=== PATIENT | male | born 1935 | race Caucasian/White ===

== ENCOUNTER 2018-07-17 09:33 | Emergency (ER) | payer MEDICARE, OTHER ==
[2018-07-17] MEDS ORDERED: Sodium Chloride 0.9% 10 ML Syringe FLUSH PRN (09:35)
--- NOTE | 2018-07-17 10:05 | EDM.PDOC ---
ED HPI GENERAL MEDICAL PROBLEM - General Chief Complaint: Respiratory Problem Stated Complaint: sob, coughing up blood Time Seen by Provider: 07/17/18 09:35 Source of Information: Reports: Patient History Limitations: Reports: No Limitations - History of Present Illness INITIAL COMMENTS - FREE TEXT/NARRATIVE: Patient complains of left sided back pain, shortness of breath, and hemoptysis. He was in [place] [facility] [place] yesterday for a left lobe biopsy for lung growths that had appeared. 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 He is able to communicate by covering the stoma. He denies fever, chills, abdominal pain. 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 Chronic a-fib for which he takes coumadin. Was off the coumadin before the biopsy, bridged with Lovenox, and has now also resumed his coumadin post procedure. 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 Denies prior heart attack. Has had his appendix removed, but still has gall bladder. He denies any prior DVT. Onset: Today, Gradual Duration: Intermittent Location: Reports: Chest, Back Severity: Mild Associated Symptoms: Reports: Shortness of Breath Left Back Pain Score (Numeric/FACES): 5 - Related Data Allergies Allergy/AdvReac Type Severity Reaction Status Date / Time atorvastatin calcium Allergy Other Verified 07/17/18 10:07 [From Lipitor] Home Meds: Home Meds Hydrochlorothiazide 0.5 tab PO DAILY 02/24/15 [History] Lisinopril 20 mg PO DAILY 02/24/15 [History] Metoprolol Tartrate [Lopressor] 1 tab PO BID 02/24/15 [History] Simvastatin 1 tab PO BEDTIME 02/24/15 [History] Warfarin [Coumadin] 1 tab PO DAILY 02/24/15 [History] amLODIPine [Norvasc] 5 mg PO DAILY 02/24/15 [History] Arformoterol [Brovana] 1 puff INH BID 07/17/18 [History] Enoxaparin [Lovenox] 80 mg SUBCUT DAILY 07/17/18 [History] Furosemide 40 mg PO DAILY 07/17/18 [History] Ipratropium [Atrovent] 0.5 mg IH TID 07/17/18 [History] metOLazone [Metolazone] 2.5 mg PO DAILY 07/17/18 [History] Past Medical History Other Cardiovascular History: sick sinus syndrome, peripheral vascular disease Other Gastrointestinal History: elevated PSA Other Oncologic History: larynx cancer - Past Surgical History Other HEENT Surgeries/Procedures: laryngectomy Other GI Surgeries/Procedures: adenomatous colon polyp ED ROS GENERAL - Review of Systems Review Of Systems: See Below Constitutional: Reports: No Symptoms HEENT: Reports: No Symptoms Respiratory: Reports: Shortness of Breath, Hemoptysis Cardiovascular: Reports: No Symptoms Endocrine: Reports: No Symptoms GI/Abdominal: Reports: No Symptoms : Reports: No Symptoms Musculoskeletal: Reports: Back Pain Skin: Reports: No Symptoms Neurological: Reports: No Symptoms Psychiatric: Reports: No Symptoms Hematologic/Lymphatic: Reports: No Symptoms Immunologic: Reports: No Symptoms ED EXAM, GENERAL - Physical Exam Exam: See Below Exam Limited By: No Limitations General Appearance: Alert, WD/WN, No Apparent Distress Eye Exam: Bilateral Eye: EOMI, Normal Inspection, PERRL Ears: Normal TMs Nose: Normal Inspection, Normal Mucosa, No Blood Throat/Mouth: Normal Lips, Normal Teeth, Normal Gums, Other Head: Atraumatic, Normocephalic Neck: Other (stoma to neck from prior laryngectomy) Respiratory/Chest: No Respiratory Distress, Lungs Clear, Normal Breath Sounds ( to right side lobes only), No Accessory Muscle Use, Chest Non-Tender, Decreased Breath Sounds (left lung sounds present but decreased to all lobes) Cardiovascular: Irregularly Irregular (a-fib, paced) GI/Abdominal: Normal Bowel Sounds, Soft, Non-Tender, No Organomegaly, No Distention, No Abnormal Bruit, No Mass Back Exam: Normal Inspection, Full Range of Motion, Other (dressing to left upper back) Extremities: Normal Inspection, Normal Range of Motion, Non-Tender, Normal Capillary Refill, No Pedal Edema Neurological: Alert, Oriented, CN II-XII Intact, Normal Cognition, Normal Gait, Normal Reflexes, No Motor/Sensory Deficits Skin Exam: Wound/Incision (dressing to left upper back. Dressing is clean, dry , and intact) Lymphatic: No Adenopathy Course - Vital Signs Last Recorded V/S: Last Vital Signs Temp 37.7 C 07/17/18 10:29 Pulse 78 07/17/18 10:29 Resp 24 H 07/17/18 10:29 BP 126/59 L 07/17/18 10:29 Pulse Ox 92 L 07/17/18 10:29 - Orders/Labs/Meds Orders: Active Orders 24 hr Category Date Time Status EKG Documentation Completion [RC] STAT Care 07/17/18 09:35 Ordered Saline Lock Insert [OM.PC] Routine Oth 07/17/18 09:35 Ordered Labs: Laboratory Tests 07/17/18 07/17/18 07/17/18 Range/Units 09:50 09:50 09:50 WBC 12.6 H (4.0-10.0) x10^3/uL RBC 4.09 L (4.5-6.0) x10^6/uL Hgb 12.0 L (14.0-18.0) g/dL Hct 37.8 L (40.0-52.0) % MCV 92.4 (78.0-93.0) fL MCH 29.3 (26.0-32.0) pg MCHC 31.7 L (32.0-36.0) g/dL RDW Coeff of Leelee 13.8 (10.0-15.0) % Plt Count 245 (130-400) x10^3/uL Neut % (Auto) 77.5 (50.0-80.0) % Lymph % (Auto) 11.8 L (25.0-50.0) % [place] % (Auto) 10.6 (2.0-11.0) % Eos % (Auto) 0.0 (0.0-4.0) % Baso % (Auto) 0.1 L (0.2-1.2) % PT (9.6-11.4) SEC INR (2.0-3.5) D-Dimer, Quantitative 0.89 H (<=0.58) mg/LFEU Sodium 143 (136-145) mmol/L Potassium 4.2 (3.5-5.1) mmol/L Chloride 105 (98-107) mmol/L Carbon Dioxide 25 (21-32) mmol/L Anion Gap 17.2 (10-20) mmol/L BUN 34 H (7-18) mg/dL Creatinine 1.6 H (0.70-1.30) mg/dL Est Cr Clr Drug Dosing TNP Estimated GFR (MDRD) 41 Glucose 165 H (74-106) mg/dL Calcium 9.2 (8.5-10.1) mg/dL Corrected Calcium 9.36 (8.5-10.1) mg/dL Total Bilirubin 2.2 H (0.2-1.0) mg/dL AST 27 (15-37) U/L ALT 37 (16-63) U/L Alkaline Phosphatase 95 (46-116) U/L Creatine Kinase 137 (39-308) U/L Troponin I < 0.017 (<=0.056) ng/mL NT-Pro-B Natriuret Pep 2968 H (<=450) pg/mL Total Protein 7.9 (6.4-8.2) g/dL Albumin 3.8 (3.4-5.0) g/dL Globulin 4.1 Albumin/Globulin Ratio 0.93 Amylase 84 (25-115) U/L TSH, Ultra Sensitive 1.717 (0.358-3.74) uIU/mL 07/17/18 Range/Units 09:50 WBC (4.0-10.0) x10^3/uL RBC (4.5-6.0) x10^6/uL Hgb (14.0-18.0) g/dL Hct (40.0-52.0) % MCV (78.0-93.0) fL MCH (26.0-32.0) pg MCHC (32.0-36.0) g/dL RDW Coeff of Leelee (10.0-15.0) % Plt Count (130-400) x10^3/uL Neut % (Auto) (50.0-80.0) % Lymph % (Auto) (25.0-50.0) % [place] % (Auto) (2.0-11.0) % Eos % (Auto) (0.0-4.0) % Baso % (Auto) (0.2-1.2) % PT 11.6 H (9.6-11.4) SEC INR 1.1 L (2.0-3.5) D-Dimer, Quantitative (<=0.58) mg/LFEU Sodium (136-145) mmol/L Potassium (3.5-5.1) mmol/L Chloride (98-107) mmol/L Carbon Dioxide (21-32) mmol/L Anion Gap (10-20) mmol/L BUN (7-18) mg/dL Creatinine (0.70-1.30) mg/dL Est Cr Clr Drug Dosing Estimated GFR (MDRD) Glucose (74-106) mg/dL Calcium (8.5-10.1) mg/dL Corrected Calcium (8.5-10.1) mg/dL Total Bilirubin (0.2-1.0) mg/dL AST (15-37) U/L ALT (16-63) U/L Alkaline Phosphatase (46-116) U/L Creatine Kinase (39-308) U/L Troponin I (<=0.056) ng/mL NT-Pro-B Natriuret Pep (<=450) pg/mL Total Protein (6.4-8.2) g/dL Albumin (3.4-5.0) g/dL Globulin Albumin/Globulin Ratio Amylase (25-115) U/L TSH, Ultra Sensitive (0.358-3.74) uIU/mL Meds: Medications Discontinued Medications Generic Name Dose Route Start Last Admin Trade Name Freq PRN Reason Stop Dose Admin Sodium Chloride 10 ml 07/17/18 09:35 Saline Flush FLUSH ASDIRECTED PRN Keep Vein Open - Radiology Interpretation Free Text/Narrative:: Chest x-ray shows left sided pneumothorax. I did discuss findings with Dr. Solis from [facility]. I did tell him that I would not be putting in a chest tube due to stable findings hemodynamically. Also complicating the situation is his Lovenox and Warfarin medications. I felt any risk for bleeding with CT insertion would be minimized having more available staff and specialists. Departure - Departure Time of Disposition: 10:54 Disposition: DC/Tfer to Acute Hospital 02 Condition: Fair Clinical Impression: Pneumothorax, left - Discharge Information *PRESCRIPTION DRUG MONITORING PROGRAM REVIEWED*: Not Applicable *COPY OF PRESCRIPTION DRUG MONITORING REPORT IN PATIENT TAMRA: Not Applicable Referrals: Peter Bueno MD [Primary Care Provider] - Forms: ED Department Discharge, Interfacility Transfer EMTALA ED Communication - ED Communication Date/Time Date: 07/17/18 Time Called: 10:31 - Discussed Case With (1) Discussed Case With (1): Other (ER provider Dr. Solis given report) - My Orders Last 24 Hours: My Active Orders 07/17/18 09:35 EKG Documentation Completion [RC] STAT Saline Lock Insert [OM.PC] Routine - Assessment/Plan Last 24 Hours: My Active Orders 07/17/18 09:35 EKG Documentation Completion [RC] STAT Saline Lock Insert [OM.PC] Routine
--- NOTE | 2018-07-17 10:22 | CR ---
[id number] RAD/RAD Chest PA or AP 1V EXAM: SINGLE VIEW CHEST. INDICATION: SHORTNESS OF BREATH COMPARISON: CORRELATION IS MADE WITH THE CAT SCAN OF MAY 21, 2018. FINDINGS: There is a large left-sided tension pneumothorax. Report was called at the time of the dictation. The CAT scan of May 21, 2018 did demonstrate a left upper lobe cavitary lesion. IMPRESSION: LEFT SIDE LARGE TENSION PNEUMOTHORAX. Pedro Farley MD 07/17/18 [id number] Thank you for allowing us to participate in the care of your patient.
[2018-07-17 10:27] LABS: CHLORIDE,CL 105 mmol/L (98-107); SODIUM,NA 143 mmol/L (136-145)
[2018-07-17 10:29] LABS: ANION GAP 17.2 mmol/L (10-20)
[2018-07-17 10:30] VITALS: BP 126/59
== END 2018-07-17 10:54 | disposition short-term general hospital (02) ==
LOC: VM.ED 09:33
DX: J93.9 Pneumothorax, unspecified (principal); Z88.8 Allergy status to other drugs, medicaments and biological substances; Z79.899 Other long term (current) drug therapy; Z79.01 Long term (current) use of anticoagulants
CPT/HCPCS: 36415; 71045; 80053; 82150; 82550; 83880; 84443; 84484; 85025; 85379; 85610; 93005; 99284-GF; 99285-25

== ENCOUNTER 2018-09-30 16:41 | Emergency (ER) | payer MEDICARE, OTHER ==
[2018-09-30] MEDS ORDERED: Sodium Chloride 0.9% 1,000 ML IV ONE (16:44)
[2018-09-30] MEDS ORDERED: Sodium Chloride 0.9% 10 ML Syringe FLUSH PRN (16:44)
[2018-09-30] MEDS ORDERED: cefTRIAXone 1 GM Vial IVPUSH ONE (16:44)
--- NOTE | 2018-09-30 16:59 | EDM.PDOC ---
ED HPI GENERAL MEDICAL PROBLEM - General Chief Complaint: General Stated Complaint: fever, weakness Time Seen by Provider: 09/30/18 16:41 Source of Information: Reports: Patient History Limitations: Reports: No Limitations - History of Present Illness INITIAL COMMENTS - FREE TEXT/NARRATIVE: Patient comes into the emergency department with complaint of fever and weakness. Patient is an oncology patient with active lung cancer. He is undergoing radiation and chemotherapy 5 days a week at the [facility]. Has 2 weeks left prior to completion. He contacted his oncologist earlier today when he spiked a fever of 101.3 and 101.5 and had increased weakness today. He also is complaining of SOB, productive cough/blood however, he states this has been going on now for a few weeks with no major changes today and his oncologist is aware. Patient denies any chest pain, dizziness, lightheadedness, blurred vision, swelling of the lower extremities, nausea or vomiting or diarrhea. He also denies being around anyone with illnesses recently. Onset: Sudden Improves with: Reports: None Worsens with: Reports: None Associated Symptoms: Reports: Cough, cough w sputum, Fever/Chills, Malaise, Weakness - Related Data Allergies Allergy/AdvReac Type Severity Reaction Status Date / Time atorvastatin calcium Allergy Other Verified 09/30/18 16:51 [From Lipitor] Home Meds: Home Meds Metoprolol Tartrate [Lopressor] 1 tab PO BID 02/24/15 [History] Simvastatin 1 tab PO BEDTIME 02/24/15 [History] Warfarin [Coumadin] 1 tab PO DAILY 02/24/15 [History] amLODIPine [Norvasc] 5 mg PO DAILY 02/24/15 [History] Arformoterol [Brovana] 1 puff INH BID 07/17/18 [History] Furosemide 40 mg PO DAILY 07/17/18 [History] Ipratropium [Atrovent] 0.5 mg IH TID 07/17/18 [History] metOLazone [Metolazone] 2.5 mg PO DAILY 07/17/18 [History] Past Medical History Other Cardiovascular History: sick sinus syndrome, peripheral vascular disease Other Gastrointestinal History: elevated PSA Other Oncologic History: larynx cancer - Past Surgical History Other HEENT Surgeries/Procedures: laryngectomy Other GI Surgeries/Procedures: adenomatous colon polyp ED ROS GENERAL - Review of Systems Review Of Systems: ROS reveals no pertinent complaints other than HPI. Constitutional: Reports: Fever, Chills, Malaise, Weakness HEENT: Reports: No Symptoms Respiratory: Reports: No Symptoms Cardiovascular: Reports: No Symptoms GI/Abdominal: Reports: No Symptoms : Reports: No Symptoms Musculoskeletal: Reports: No Symptoms Skin: Reports: No Symptoms Neurological: Reports: No Symptoms ED EXAM, GENERAL - Physical Exam Exam: See Below Exam Limited By: No Limitations General Appearance: Alert, WD/WN, No Apparent Distress Head: Atraumatic, Normocephalic Neck: Normal Inspection, Supple, Non-Tender Respiratory/Chest: No Respiratory Distress, Lungs Clear, No Accessory Muscle Use Neurological: Alert, Oriented Skin Exam: Warm, Dry, Intact, Normal Color Course - Vital Signs Last Recorded V/S: Last Vital Signs Temp 38.2 C H 09/30/18 17:12 Pulse 104 H 09/30/18 16:50 Resp 16 09/30/18 16:50 BP 152/74 H 09/30/18 16:50 Pulse Ox 97 09/30/18 16:50 - Orders/Labs/Meds Orders: Active Orders 24 hr Category Date Time Status EKG Documentation Completion [RC] STAT Care 09/30/18 16:43 Ordered CULTURE BLOOD [BC] Stat Lab 09/30/18 16:44 Ordered CULTURE BLOOD [BC] Stat Lab 09/30/18 16:44 Ordered Sodium Chloride 0.9% [Saline Flush] Med 09/30/18 16:44 Ordered 10 ml FLUSH ASDIRECTED PRN Blood Culture x2 Reflex Set [OM.PC] Stat Oth 09/30/18 16:43 Ordered Peripheral IV Insertion Adult [OM.PC] Stat Oth 09/30/18 16:43 Ordered Medication Orders Sodium Chloride (Saline Flush) 10 ml FLUSH ASDIRECTED PRN PRN Reason: Keep Vein Open Last Admin: 09/30/18 17:08 Dose: 10 ml Labs: Laboratory Tests 09/30/18 09/30/18 09/30/18 Range/Units 16:56 16:56 16:56 WBC 3.3 L (4.0-10.0) x10^3/uL RBC 3.34 L (4.5-6.0) x10^6/uL Hgb 10.1 L D (14.0-18.0) g/dL Hct 29.4 L (40.0-52.0) % MCV 88.0 D (78.0-93.0) fL MCH 30.2 (26.0-32.0) pg MCHC 34.4 (32.0-36.0) g/dL RDW Coeff of Leelee 13.0 (10.0-15.0) % Plt Count 181 (130-400) x10^3/uL Neut % (Auto) 75.7 (50.0-80.0) % Lymph % (Auto) 18.6 L (25.0-50.0) % [place] % (Auto) 5.4 (2.0-11.0) % Eos % (Auto) 0.0 (0.0-4.0) % Baso % (Auto) 0.3 (0.2-1.2) % Sodium 138 (136-145) mmol/L Potassium 3.6 (3.5-5.1) mmol/L Chloride 99 (98-107) mmol/L Carbon Dioxide 29 (21-32) mmol/L Anion Gap 13.6 (10-20) mmol/L BUN 20 H (7-18) mg/dL Creatinine 1.0 (0.70-1.30) mg/dL Est Cr Clr Drug Dosing TNP Estimated GFR (MDRD) > 60 Glucose 123 H (74-106) mg/dL Lactic Acid 1.8 (0.4-2.0) mmol/L Calcium 8.2 L (8.5-10.1) mg/dL Corrected Calcium 8.84 (8.5-10.1) mg/dL Total Bilirubin 1.4 H (0.2-1.0) mg/dL AST 23 (15-37) U/L ALT 39 (16-63) U/L Alkaline Phosphatase 85 (46-116) U/L Total Protein 7.1 (6.4-8.2) g/dL Albumin 3.2 L (3.4-5.0) g/dL Globulin 3.9 Albumin/Globulin Ratio 0.82 Meds: Medications Generic Name Dose Route Start Last Admin Trade Name Freq PRN Reason Stop Dose Admin Sodium Chloride 10 ml 09/30/18 16:44 09/30/18 17:08 Saline Flush FLUSH 10 ml ASDIRECTED PRN Administration Keep Vein Open Discontinued Medications Generic Name Dose Route Start Last Admin Trade Name Fred PRN Reason Stop Dose Admin Acetaminophen 650 mg 09/30/18 17:04 09/30/18 17:12 Tylenol PO 09/30/18 17:05 650 mg NOW ONE Administration Ceftriaxone Sodium 1 gm 09/30/18 16:44 09/30/18 17:06 Rocephin IVPUSH 09/30/18 16:45 1 gm ONETIME ONE Administration Sodium Chloride 1,000 mls @ 1,000 mls/hr 09/30/18 16:44 09/30/18 17:13 Normal Saline IV 09/30/18 17:43 1,000 mls/hr ONETIME ONE Administration - Re-Assessments/Exams Free Text/Narrative Re-Assessment/Exam: 09/30/18 17:37 he is feeling better. VSS. Would like to go home and follow up at his oncology appointment tomorrow. Departure - Departure Time of Disposition: 18:00 Disposition: Home, Self-Care 01 Condition: Good Clinical Impression: Weakness Fever Qualifiers: Fever type: unspecified Qualified Code(s): R50.9 - Fever, unspecified - Discharge Information *PRESCRIPTION DRUG MONITORING PROGRAM REVIEWED*: Not Applicable *COPY OF PRESCRIPTION DRUG MONITORING REPORT IN PATIENT TAMRA: Not Applicable Instructions: Fever, Adult, Weakness, [id number] Referrals: Pteer Bueno MD [Primary Care Provider] - Forms: ED Department Discharge Additional Instructions: 1. rest 2. follow up with oncology in the am as you are already scheduled 3. Can take Tylenol every 4 hours as needed for pain or fever 4. increase your water intake 5. Activity and diet as tolerated 6. You were given Rocephin in the ER for the fever and your labs/xray did not show any acute findings. 7. Please call with any questions or concerns. - Problem List Review Problem List Initiated/Reviewed/Updated: Yes - My Orders Last 24 Hours: My Active Orders 09/30/18 16:43 EKG Documentation Completion [RC] STAT Blood Culture x2 Reflex Set [OM.PC] Stat Peripheral IV Insertion Adult [OM.PC] Stat 09/30/18 16:44 CULTURE BLOOD [BC] Stat CULTURE BLOOD [BC] Stat Sodium Chloride 0.9% [Saline Flush] 10 ml FLUSH ASDIRECTED PRN - Assessment/Plan Last 24 Hours: My Active Orders 09/30/18 16:43 EKG Documentation Completion [RC] STAT Blood Culture x2 Reflex Set [OM.PC] Stat Peripheral IV Insertion Adult [OM.PC] Stat 09/30/18 16:44 CULTURE BLOOD [BC] Stat CULTURE BLOOD [BC] Stat Sodium Chloride 0.9% [Saline Flush] 10 ml FLUSH ASDIRECTED PRN Assessment:: 1. Fever 2. Weakness 3. Active chemo/radiation oncology patient Plan: 1. Labs completed in the ER. Results reviewed with the patient 2. EKG completed in the ER results. Patient. 3. Blood cultures completed in the emergency department 4. IV access with IV fluids for rehydration 5. Rocephin 1gm IV given after blood cultures obtained 6. Tylenol ordered for comfort and fever reduction 7. Chest x-ray completed. Results reviewed with the patient 8. Patient would like to go home. He is scheduled for radiation and chemo tomorrow and an appointment with oncology in [place]. Pt is feeling better and would like to go home. 9. Education regarding activity, diet, OTC medication, and follow up care provided. 10. All questions and concerns were addressed prior to discharge.
[2018-09-30] MEDS ORDERED: Acetaminophen 325 MG Tab PO ONE (17:04)
--- NOTE | 2018-09-30 17:27 | CR ---
[id number] RAD/RAD Chest PA And Lateral EXAM: RAD Chest PA And Lateral CLINICAL DATA: LUNG CANCER. HEMOPTYSIS COMPARISON: CORRELATION IS MADE WITH THE EXAM OF JULY 17, 2018. FINDINGS: There is no infiltrate or effusion. There is no pneumothorax. The cardiomediastinal contour is stable. The pacemaker is seen. The lungs are emphysematous. IMPRESSION: NO OBVIOUS ABNORMALITY. CONSIDER CONTRAST CT CHEST IF HEMOPTYSIS PERSISTS. Pedro Farley MD 09/30/18 [id number] Thank you for allowing us to participate in the care of your patient.
[2018-09-30 17:29] LABS: CHLORIDE,CL 99 mmol/L (98-107); SODIUM,NA 138 mmol/L (136-145)
[2018-09-30 17:31] LABS: ANION GAP 13.6 mmol/L (10-20)
[2018-09-30 17:43] VITALS: BP 152/74
== END 2018-09-30 18:16 | disposition home or self-care (01) ==
LOC: VM.ED 16:41
DX: R53.1 Weakness (principal); R50.9 Fever, unspecified; C34.90 Malignant neoplasm of unspecified part of unspecified bronchus or lung; Z79.899 Other long term (current) drug therapy; Z79.01 Long term (current) use of anticoagulants; Z88.8 Allergy status to other drugs, medicaments and biological substances
CPT/HCPCS: 36415; 71046; 80053; 83605; 85025; 87040; 93005; 96361; 96374; 99284; A9270; J0696; J7030

== ENCOUNTER 2019-01-05 08:42 | Inpatient (IN) | payer MEDICARE, OTHER ==
[2019-01-05 09:37] LABS: CHLORIDE,CL 103 mmol/L (98-107); SODIUM,NA 141 mmol/L (136-145)
[2019-01-05 09:41] LABS: ANION GAP 11.6 mmol/L (10-20)
--- NOTE | 2019-01-05 09:43 | CR ---
[id number] RAD/RAD Chest PA And Lateral EXAM: FRONTAL AND LATERAL CHEST INDICATION: Syncope and bradycardia. COMPARISON: September 30, 2018. DISCUSSION: Hyperinflation is consistent with chronic obstructive pulmonary disease. Mild left upper lobe infiltrates and/or atelectasis. Unless clinically indicated sooner, a 6 week follow-up exam is suggested to ensure resolution and to help further exclude other underlying pathology.. Stable cardiomegaly without evidence of congestive heart failure. Left subclavian approach pacemaker lead tip within the right ventricle. IMPRESSION: 1. Mild left upper lobe infiltrates and/or atelectasis. 2. Stable cardiomegaly without evidence of congestive heart failure. Juanito Rodriguez MD 01/05/19 0943 Thank you for allowing us to participate in the care of your patient.
[2019-01-05] MEDS ORDERED: cefTRIAXone 2 GM Vial IVPUSH ONE (09:46)
[2019-01-05] MEDS ORDERED: Azithromycin 500 MG in Sodium Chloride 0.9% 250 ML IV ONE (09:46)
[2019-01-05] MEDS: Sodium Chloride 0.9% 10 ML Syringe FLUSH PRN ×2 (09:59→19:26)
--- NOTE | 2019-01-05 10:11 | EDM.PDOC ---
ED HPI GENERAL MEDICAL PROBLEM - General Chief Complaint: Fever Time Seen by Provider: 01/05/19 08:42 Source of Information: Reports: Patient History Limitations: Reports: No Limitations - History of Present Illness INITIAL COMMENTS - FREE TEXT/NARRATIVE: Pt. presents to ER with complaints of fever. He is currently on durvalumab for stage IIIA small cell lung carcinoma. Pt. states that he developed the fever last night and called the garbage collection supervisor oncologist at [facility] today who advised he come to ER. Pt. states that he has had a cough for several days. He states that it is productive of yellow sputum. Denies any chest pain or shortness of breath. Pt. states that he had a 101.8 fever at home. Denies any recent hospitalizations. No dysuria. No skin rashes or cellulitis. Pt. is otherwise feeling well. He is ambulatory and drove himself to the hospital. Pt. was last hospitalized in June when he had a pneumothorax. Onset: Today Onset Date: 01/04/19 Right Lower Leg Pain Score (Numeric/FACES): 6 - Related Data Allergies Allergy/AdvReac Type Severity Reaction Status Date / Time atorvastatin calcium Allergy Other Verified 09/30/18 16:51 [From Lipitor] Home Meds: Home Meds Metoprolol Tartrate [Lopressor] 25 mg PO BID 02/24/15 [History] Simvastatin 1 tab PO BEDTIME 02/24/15 [History] Warfarin [Coumadin] 1 tab PO DAILY 02/24/15 [History] amLODIPine [Norvasc] 5 mg PO DAILY 02/24/15 [History] Arformoterol [Brovana] 1 puff INH BID 07/17/18 [History] Furosemide 20 mg PO DAILY 07/17/18 [History] Ipratropium [Atrovent] 0.5 mg IH TID 07/17/18 [History] metOLazone [Metolazone] 2.5 mg PO ASDIRECTED 07/17/18 [History] Past Medical History Other Cardiovascular History: sick sinus syndrome, peripheral vascular disease Other Gastrointestinal History: elevated PSA Other Oncologic History: larynx cancer - Past Surgical History Other HEENT Surgeries/Procedures: laryngectomy Other GI Surgeries/Procedures: adenomatous colon polyp ED ROS GENERAL - Review of Systems Review Of Systems: See Below Constitutional: Reports: Fever, Chills HEENT: Reports: No Symptoms Respiratory: Reports: Cough Cardiovascular: Reports: No Symptoms Endocrine: Reports: No Symptoms GI/Abdominal: Reports: No Symptoms : Reports: No Symptoms Musculoskeletal: Reports: No Symptoms Skin: Reports: No Symptoms Neurological: Reports: No Symptoms Psychiatric: Reports: No Symptoms Hematologic/Lymphatic: Reports: No Symptoms Immunologic: Reports: Other (on immunosuppressant) ED EXAM, GENERAL - Physical Exam Exam: See Below Exam Limited By: No Limitations General Appearance: Alert, WD/WN, No Apparent Distress Eye Exam: Bilateral Eye: EOMI, PERRL Throat/Mouth: Normal Inspection, Normal Lips, Normal Teeth, Normal Gums, Normal Oropharynx, Normal Voice, No Airway Compromise Neck: Normal Inspection, Supple, Non-Tender, Full Range of Motion Respiratory/Chest: No Respiratory Distress, No Accessory Muscle Use, Crackles, Rhonchi (crackles and rhonchi on L. Pleural rub noted.), Pleural Rub Cardiovascular: Normal Peripheral Pulses, No Edema, No Gallop, No JVD, No Murmur , No Rub, Irregularly Irregular GI/Abdominal: Normal Bowel Sounds, Soft, Non-Tender, No Organomegaly, No Distention, No Abnormal Bruit, No Mass (Male) Exam: Deferred Rectal (Males) Exam: Deferred Back Exam: Normal Inspection, Full Range of Motion Extremities: Normal Inspection, Normal Range of Motion, Non-Tender, No Pedal Edema, Normal Capillary Refill Neurological: Alert, Oriented, CN II-XII Intact, Normal Cognition, Normal Gait, Normal Reflexes, No Motor/Sensory Deficits Psychiatric: Normal Affect, Normal Mood Skin Exam: Warm, Dry, Intact, Normal Color, No Rash Lymphatic: No Adenopathy Course - Vital Signs Last Recorded V/S: Last Vital Signs Temp 37.4 C 01/05/19 08:45 Pulse 78 01/05/19 08:45 Resp 16 01/05/19 08:45 BP 123/60 01/05/19 08:45 Pulse Ox 97 01/05/19 08:45 - Orders/Labs/Meds Orders: Active Orders 24 hr Category Date Time Status CULTURE BLOOD [BC] Stat Lab 01/05/19 09:00 Received CULTURE BLOOD [BC] Stat Lab 01/05/19 09:06 Results Azithromycin [Zithromax] 500 mg Med 01/05/19 09:46 Active Sodium Chloride 0.9% [Normal Saline (AdvBag)] 250 ml IV STAT Sodium Chloride 0.9% [Saline Flush] Med 01/05/19 08:49 Active 10 ml FLUSH ASDIRECTED PRN Blood Culture x2 Reflex Set [OM.PC] Stat Oth 01/05/19 08:52 Ordered Peripheral IV Insertion Adult [OM.PC] Routine Oth 01/05/19 08:50 Ordered Medication Orders Azithromycin 500 mg/ Sodium (Chloride) 250 mls @ 250 mls/hr IV STAT ONE Stop: 01/05/19 10:45 Last Admin: 01/05/19 10:01 Dose: 250 mls/hr Sodium Chloride (Saline Flush) 10 ml FLUSH ASDIRECTED PRN PRN Reason: Keep Vein Open Last Admin: 01/05/19 09:59 Dose: 10 ml Labs: Laboratory Tests 01/05/19 01/05/19 01/05/19 Range/Units 09:00 09:00 09:00 WBC 10.4 H (4.0-10.0) x10^3/uL RBC 3.48 L (4.5-6.0) x10^6/uL Hgb 10.7 L (14.0-18.0) g/dL Hct 32.9 L (40.0-52.0) % MCV 94.5 H D (78.0-93.0) fL MCH 30.7 (26.0-32.0) pg MCHC 32.5 (32.0-36.0) g/dL RDW Coeff of Leelee 13.0 (10.0-15.0) % Plt Count 194 (130-400) x10^3/uL Neut % (Auto) 80.2 H (50.0-80.0) % Lymph % (Auto) 6.1 L (25.0-50.0) % Dorado % (Auto) 13.3 H (2.0-11.0) % Eos % (Auto) 0.3 (0.0-4.0) % Baso % (Auto) 0.1 L (0.2-1.2) % PT 32.0 H (10.0-12.8) SEC INR 2.8 (2.0-3.5) Sodium 141 (136-145) mmol/L Potassium 3.6 (3.5-5.1) mmol/L Chloride 103 (98-107) mmol/L Carbon Dioxide 30 (21-32) mmol/L Anion Gap 11.6 (10-20) mmol/L BUN 23 H (7-18) mg/dL Creatinine 1.1 (0.70-1.30) mg/dL Est Cr Clr Drug Dosing TNP Estimated GFR (MDRD) > 60 Glucose 118 H (74-106) mg/dL Lactic Acid (0.4-2.0) mmol/L Calcium 8.7 (8.5-10.1) mg/dL Corrected Calcium 9.66 (8.5-10.1) mg/dL Phosphorus 3.2 (2.6-4.7) mg/dL Magnesium 1.7 L (1.8-2.4) mg/dL Total Bilirubin 1.8 H (0.2-1.0) mg/dL AST 44 H (15-37) U/L ALT 39 (16-63) U/L Alkaline Phosphatase 134 H (46-116) U/L C-Reactive Protein 4.3 H (<=0.9) mg/dL Total Protein 6.6 (6.4-8.2) g/dL Albumin 2.8 L (3.4-5.0) g/dL Globulin 3.8 Albumin/Globulin Ratio 0.74 01/05/19 Range/Units 09:00 WBC (4.0-10.0) x10^3/uL RBC (4.5-6.0) x10^6/uL Hgb (14.0-18.0) g/dL Hct (40.0-52.0) % MCV (78.0-93.0) fL MCH (26.0-32.0) pg MCHC (32.0-36.0) g/dL RDW Coeff of Leelee (10.0-15.0) % Plt Count (130-400) x10^3/uL Neut % (Auto) (50.0-80.0) % Lymph % (Auto) (25.0-50.0) % Dorado % (Auto) (2.0-11.0) % Eos % (Auto) (0.0-4.0) % Baso % (Auto) (0.2-1.2) % PT (10.0-12.8) SEC INR (2.0-3.5) Sodium (136-145) mmol/L Potassium (3.5-5.1) mmol/L Chloride (98-107) mmol/L Carbon Dioxide (21-32) mmol/L Anion Gap (10-20) mmol/L BUN (7-18) mg/dL Creatinine (0.70-1.30) mg/dL Est Cr Clr Drug Dosing Estimated GFR (MDRD) Glucose (74-106) mg/dL Lactic Acid 1.3 (0.4-2.0) mmol/L Calcium (8.5-10.1) mg/dL Corrected Calcium (8.5-10.1) mg/dL Phosphorus (2.6-4.7) mg/dL Magnesium (1.8-2.4) mg/dL Total Bilirubin (0.2-1.0) mg/dL AST (15-37) U/L ALT (16-63) U/L Alkaline Phosphatase (46-116) U/L C-Reactive Protein (<=0.9) mg/dL Total Protein (6.4-8.2) g/dL Albumin (3.4-5.0) g/dL Globulin Albumin/Globulin Ratio Meds: Medications Generic Name Dose Route Start Last Admin Trade Name Freq PRN Reason Stop Dose Admin Azithromycin 500 mg/ Sodium 250 mls @ 250 mls/hr 01/05/19 09:46 01/05/19 10: 01 Chloride IV 01/05/19 10:45 250 mls/hr STAT ONE Administration Sodium Chloride 10 ml 01/05/19 08:49 01/05/19 09:59 Saline Flush FLUSH 10 ml ASDIRECTED PRN Administration Keep Vein Open Discontinued Medications Generic Name Dose Route Start Last Admin Trade Name Freq PRN Reason Stop Dose Admin Ceftriaxone Sodium 2 gm 01/05/19 09:46 01/05/19 10:00 Rocephin IVPUSH 01/05/19 09:47 2 gm STAT ONE Administration - Radiology Interpretation Free Text/Narrative:: L upper lobe infiltrate noted on chest x-ray. - Re-Assessments/Exams Free Text/Narrative Re-Assessment/Exam: 01/05/19 10:29 Pt. was given Rocephin 2mg IV and azithromycin 500mg IV. Departure - Departure Time of Disposition: 10:28 Disposition: DC/Tfer to [facility] 02 Clinical Impression: Pneumonia - Discharge Information - Problem List Review Problem List Initiated/Reviewed/Updated: Yes - My Orders Last 24 Hours: My Active Orders 01/05/19 08:49 Sodium Chloride 0.9% [Saline Flush] 10 ml FLUSH ASDIRECTED PRN 01/05/19 08:50 Peripheral IV Insertion Adult [OM.PC] Routine 01/05/19 08:52 Blood Culture x2 Reflex Set [OM.PC] Stat 01/05/19 09:00 CULTURE BLOOD [BC] Stat 01/05/19 09:06 CULTURE BLOOD [BC] Stat 01/05/19 09:46 Azithromycin [Zithromax] 500 mg Sodium Chloride 0.9% [Normal Saline (AdvBag)] 250 ml IV STAT - Assessment/Plan Last 24 Hours: My Active Orders 01/05/19 08:49 Sodium Chloride 0.9% [Saline Flush] 10 ml FLUSH ASDIRECTED PRN 01/05/19 08:50 Peripheral IV Insertion Adult [OM.PC] Routine 01/05/19 08:52 Blood Culture x2 Reflex Set [OM.PC] Stat 01/05/19 09:00 CULTURE BLOOD [BC] Stat 01/05/19 09:06 CULTURE BLOOD [BC] Stat 01/05/19 09:46 Azithromycin [Zithromax] 500 mg Sodium Chloride 0.9% [Normal Saline (AdvBag)] 250 ml IV STAT Plan: Pt. will be admitted acutely. He will be admitted by Dr. Perkins. He is a code 2, no intubation but wishes for ventilation if needed. I spoke with Dr. Mendes who advised obtaining a CTA to rule out immunosuppressant induced pneumonitis. This will be done from the floor, as the ER is full and there are no beds available.
[2019-01-05] MEDS ORDERED: Iopamidol 612 MG/ML 100 ML Bottle IVPUSH ONE (10:43)
[2019-01-05] MEDS ORDERED: Albuterol/Ipratropium 3.0-0.5 MG/3 ML Neb Soln NEB PRN (11:21)
[2019-01-05] MEDS ORDERED: Prochlorperazine 5 MG Tab PO PRN (12:00)
[2019-01-05] MEDS: Ipratropium 0.02% 0.5 MG/2.5 ML Neb Soln INH SCH ×2 (12:07→19:25)
[2019-01-05] MEDS: Magnesium Oxide 400 MG Tab PO SCH (12:14)
--- NOTE | 2019-01-05 12:16 | CT ---
[id number] CT/CTA Chest EXAM: CT ANGIOGRAM CHEST INDICATION: Pneumonia and fever. COMPARISON: May 21, 2017. DISCUSSION: No large or central pulmonary embolus is identified, but respiratory motion limits evaluation for small and peripheral emboli. Mild to moderate consolidation in the apex of the left upper lobe. Mild bilateral groundglass opacities. These findings are compatible with pneumonia. These changes are not the classic nodule with halo or reverse halo typically described in angioinvasive aspergillus. Stable mild to moderate emphysema including a bulla in the apex of the left upper lobe. Irregular nodularity along the margins of the liver has not appreciably changed. Small left pleural effusion. Cardiomegaly with reflux of contrast into the hepatic veins consistent with cardiac insufficiency. Pacemaker leads are seen in the right heart. Small ascites in the upper abdomen. Imaged upper abdomen and osseous structures are otherwise unremarkable. IMPRESSION: 1. Left upper lobe infiltrates consistent with infection. 2. Negative for pulmonary embolism. Juanito Rodriguez MD 01/05/19 2198 Thank you for allowing us to participate in the care of your patient.
[2019-01-05] MEDS ORDERED: methylPREDNISolone Sodium Succinate 125 MG/2 ML SDV IVPUSH ONE (14:01)
[2019-01-05] MEDS ORDERED: cefTRIAXone 2 GM, Lidocaine 1% 4.2 ML IM ONE ×2 (14:02)
[2019-01-05] MEDS ORDERED: Acetaminophen 500 MG Tab PO PRN (16:11)
--- NOTE | 2019-01-05 17:14 | HP ---
CHIEF COMPLAINT: Fever. HISTORY OF PRESENT ILLNESS: This is an 83-year-old male with known history of non small cell lung cancer on immunotherapy with durvalumab who presents to the emergency room with a fever he developed last night. He had not been feeling well for a few days. He was not able to sleep much last night. He has had some cough, but he denied any shortness of breath. No chest pain. His temp was 101.8. He does have some rash to the right seals which is chronic, but it has been more painful recently. He also has a history of laryngeal cancer and more recently the lung cancer, has been on some treatments it sounds like since June, but was recently switched over to the immunotherapy, has had at least a couple of doses, they are like every 2 weeks, next due on 01/09/2019. He had only a 99.4 temp in the ER, mildly elevated white count 10.4. He was not requiring any oxygen. He is already on Coumadin for AFib. He received IV Rocephin and Zithromax in the ER. ALLERGIES: Lipitor caused elevated liver enzymes. MEDICATIONS: His medication list is reviewed. He takes ipratropium inhalations 3 times a day, Lopressor 25 twice daily, Senokot as needed, lactulose as needed, Zofran as needed, Compazine as needed, Lasix 20 mg daily, Zaroxolyn 2.5 every other day, Brovana 15 mcg twice a day, Norvasc 5 mg daily, Zocor 20 mg at bedtime, warfarin dosing schedule is 5 mg on Monday, Monday, Monday, , and Monday and 2.5 on Mondays and Fridays. PAST MEDICAL HISTORY: Otherwise includes quite complex history of appendicitis with appendectomy in 2017. He has some ascites which is reportedly due to some CHF. He has had pleural effusions and thoracentesis and thoracotomies in the past. He has chronic diastolic heart failure, his EF is 50%. He has a pacemaker in place. He has a history of colon polyps. He has atrial fibrillation, basal cell skin cancer, [id number] carcinoma of the left lung stage IIIA, upper lobe, currently on treatments. He has chronic respiratory failure due to COPD, but is not on oxygen during the day. He has COPD and previous history of smoking. Appears like he has not been admitted for any exacerbations for over a year. Coronary artery disease, more on a medical management. 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 PAST SURGICAL HISTORY: He has had bilateral cataracts. He has add laryngectomy. He has had umbilical hernia surgery, inguinal hernia surgery, and appendectomy. SOCIAL HISTORY: He is . He lives at home with his . He was in the [employer]. He had 5 children, 1 had in a car accident. 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 FAMILY HISTORY: Both parents are . He has a brother who had colorectal cancer and 1 who had brain cancer. REVIEW OF SYSTEMS: General: The patient had felt some fevers, not necessarily any chills. He just felt more like tired over the last few days. He has not had any excessive weight losses. HEENT: No sore throat. Cardiac: No chest pain or palpitations. Respiratory: He has had some cough. No shortness of breath. Abdomen: No nausea, vomiting, abdominal pain, diarrhea, or constipation. Does feel like he needs to have a bowel movement now, had 1 yesterday. Musculoskeletal: No new aches or pains other than the rash being more painful. Skin: He has had the chronic rash to his lower extremities. Psychiatric and Mental Status: He has had no confusion. OBJECTIVE: Vital Signs: His temperature currently 98.8, weight 72.5 kg, pulse 75, blood pressure 127/59, respiratory rate 16, O2 of 99% on room air. General: He is in no acute distress. Heart: Irregularly irregular. Lungs: Lung sounds are diminished, but no crackles or wheezes appreciated. Abdomen: Distended, has positive bowel sounds. It is nontender. Extremities: Warm and dry. There is tenderness, especially over the right seals, but no swelling or edema. He does have a red rash noted with some mild warmth. There is also rash in the left leg, but more pinpoint surrounding lesions. Otherwise, no open sores noted. Mental Status: He is alert and orientated x3. DIAGNOSTIC DATA: His lab work does show white count 10.4, hemoglobin 10.7, platelets 194. INR 2.8. Sodium 141, potassium 3.6, chloride 103, bicarb 30, BUN 23, creatinine 1.1, glucose 118, lactic acid 1.3, magnesium mildly low at 1.7, bilirubin 1.8, ALT 39, AST 44, CRP 4.3, alkaline phosphatase 134, albumin 2.8. His chest x-ray was performed, suggests a developing infiltrate in the left upper lobe. ASSESSMENT AND PLAN: 1. Community-acquired pneumonia. The patient is under cancer treatments, but has not recently been admitted. He got IV Rocephin and IV Zithromax. Blood cultures have been sent. Sputum cultures are requested. Because he is undergoing treatments per Oncology, he is going to get a CT scan to rule out some immunosuppressant-induced pneumonitis. Apparently, this is treated with steroids. Once we get the results back, we will confer with Oncology unless it looks like just a garden-variety pneumonia which certainly this patient has had before given his chronic obstructive pulmonary disease and lung disease and we had discussed that with him. 2. 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 He is due for a cycle next week. We will see how his current treatments go and how he is feeling, but possibly this will need to be postponed. 3. History of heart failure and coronary artery disease, appears to be stable. I am going to just hold his diuretics and hold off on giving fluids unless he becomes hypotensive. 4. Atrial fibrillation. INR is 2.8. Given that he is getting antibiotics, I am just going to wait and give him his 5 mg dose tomorrow. I will get the INR in the morning. 5. Essential hypertension. Blood pressure is controlled. We will continue his other home blood pressure medications. 6. Chronic obstructive pulmonary disease. He is not having an exacerbation. We are not starting IV steroids. I will give him some p.r.n. nebs. 7. Mildly elevated liver enzymes. We will repeat tomorrow, although the bilirubin was already 1.3 on 12/25/2018. 8. For deep venous thrombosis prophylaxis, the patient is therapeutically anticoagulated For code level status. The patient would not want CPR, but would want to be ventilated through his tracheostomy site as discussed with him. For the potential right lower leg cellulitis, this should be well covered with IV Rocephin which has been ordered already. I do not think repeating lactic acids is indicated. I do not feel that the patient is septic. We will follow up on CT scan results. If that looks okay and doesn't spike fevers, he may just be put on observation status as I do think he may be discharged as soon as tomorrow. MKA: 01/05/2019 11:52:30 MODL: 01/05/2019 17:08:58 /[id number] MTDAlex
[2019-01-05] MEDS ORDERED: diphenhydrAMINE 25 MG Cap PO PRN (18:30)
[2019-01-05] MEDS: Simvastatin 20 MG Tab PO SCH ×2 (19:24→20:15)
[2019-01-05] MEDS: LORazepam 0.5 MG Tab PO PRN (19:24)
[2019-01-05] MEDS: Arformoterol 15 MCG/2 ML Neb Soln INH SCH (19:24)
[2019-01-05] MEDS: Metoprolol Tartrate 25 MG Tab PO SCH ×2 (19:24→20:14)
[2019-01-06] MEDS: Ipratropium 0.02% 0.5 MG/2.5 ML Neb Soln INH SCH ×3 (07:38→19:33)
[2019-01-06] MEDS: Arformoterol 15 MCG/2 ML Neb Soln INH SCH ×2 (07:38→19:33)
[2019-01-06 08:09] LABS: CHLORIDE,CL 103 mmol/L (98-107); SODIUM,NA 141 mmol/L (136-145)
[2019-01-06 08:10] LABS: ANION GAP 9.7 mmol/L (10-20)
[2019-01-06] MEDS: Magnesium Oxide 400 MG Tab PO SCH (08:18)
[2019-01-06] MEDS: cefTRIAXone 1 GM Vial IVPUSH SCH (08:19)
[2019-01-06] MEDS: amLODIPine 5 MG Tab PO SCH (08:19)
[2019-01-06] MEDS: Metoprolol Tartrate 25 MG Tab PO SCH ×2 (08:20→19:33)
[2019-01-06] MEDS: Azithromycin 250 MG Tab PO SCH (09:05)
--- NOTE | 2019-01-06 10:36 | PN ---
Progress Note for RICHY BOLTON Date: 01/06/2019 Room #: VM.212 SUBJECTIVE: Hospital day #2 on an 83-year-old admitted with cough and fevers. He has known lung cancer and is on immunotherapy, due next week. Unfortunately, this morning despite the fact he is feeling better and hoping to go home, his blood cultures returned positive for 2 of 3 bottles of Gram-positive cocci in clusters. He did have 1 spell after admission yesterday where his temperature spiked up to 101.9 and he was quite shaky. He stated it was hard to breathe at that time, but otherwise his breathing and cough are better. He denies any abdominal pain, but does feel like it is slightly more distended today, which is what I had asked him about yesterday. Did talk about some history of possible ascites from heart failure, but he did not seem to recall this, although he is very cognitively intact. He is asking appropriate questions about why he is not getting his Lasix. He has not gotten any IV fluids either. He is consuming almost 100% of all meals. He is not having any diarrhea. OBJECTIVE: Vital Signs: T-max 101.9 at 5:00 p.m. yesterday, only fever since admission. Temperature this morning 98.9, pulse 76, blood pressure 122/66, respiratory rate 16, and O2 of 97% on room air. General: He is in no acute distress. Heart: Regular rate and rhythm with murmur appreciated. Lungs: Lung sounds are clear to auscultation bilaterally without crackles or wheezes. Abdomen: Mild distention, but positive bowel sounds, soft, nontender. I do not notice a fluid wave. Extremities: Warm and dry. He still has the pain over his right seals. He has the red rash there with warmth still, which is some chronic changes. It has not worsened since yesterday, but the pain is new. There are no fluid collections or sores. Mental Status: He is alert. He is orientated x3. LABORATORY DATA: Lab work shows white count improved to 7.6, hemoglobin stable at 10.7, platelets 163. INR 2.1. Sodium 141, potassium 3.7, chloride 103, bicarb 32, BUN 21, creatinine 1, glucose 103, calcium 8.6, bilirubin down to 1.4, AST down to 41, ALT 40, alkaline phosphatase 129, albumin 2.8. ASSESSMENT: 1. Gram-positive bacteremia. Suspected source would be pneumonia or the right lower extremity cellulitis. The patient is aware he needs to stay in the hospital for IV antibiotics until further culture information returns. If staph, he may even require transfer for further Infectious Disease consultation. If strep, it is presumably due to his pneumonia. We will continue IV Rocephin and oral Zithromax for now as he is improving. His only hardware device is his pacemaker. The site is clean, dry, and not red or tender. 2. Community-acquired pneumonia, improving. He is not requiring any oxygen. Sputum culture has been sent. 3. 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 He is due for a cycle of treatment next week. I will notify his oncologist. We discussed how this will likely postpone that. 4. History of heart failure and coronary artery disease. He is stable off diuretics. He is not getting IV fluids. We will continue to monitor for any signs or symptoms of heart failure. 5. Atrial fibrillation. His INR is still therapeutic. He is on his home Coumadin regimen, but we did skip the dose last evening due to his antibiotics and higher end of the range level. 6. Essential hypertension. Blood pressure is controlled. 7. Chronic obstructive pulmonary disease, stable without exacerbation. He is on his home nebs. 8. Mildly elevated liver enzymes, improving. 9. Deep vein thrombosis prophylaxis. He is on therapeutic anticoagulation. PLAN: At this point, the patient will continue acute cares with IV antibiotics while we evaluate for the organism and figure out the exact source of his infection. We will also send off a urine testing just for evaluation on that as well. He otherwise will receive no fluids. Today, he is eating and drinking okay. PASCALE: 01/06/2019 09:50:35 MODL: 01/06/2019 10:30:17 /[id number]
[2019-01-06] MEDS ORDERED: Furosemide 20 MG Tab PO ONE (14:19)
[2019-01-06] MEDS: Simvastatin 20 MG Tab PO SCH (19:33)
[2019-01-06] MEDS ORDERED: Warfarin 5 MG Tab PO SCH ×2 (20:00)
[2019-01-06] MEDS: Sodium Chloride 0.9% 10 ML Syringe FLUSH PRN (20:01)
[2019-01-06] MEDS: LORazepam 0.5 MG Tab PO PRN (20:01)
[2019-01-07] MEDS: Arformoterol 15 MCG/2 ML Neb Soln INH SCH (06:26)
[2019-01-07] MEDS: Ipratropium 0.02% 0.5 MG/2.5 ML Neb Soln INH SCH ×2 (06:53→08:55)
[2019-01-07 07:13] LABS: CHLORIDE,CL 104 mmol/L (98-107); SODIUM,NA 142 mmol/L (136-145)
[2019-01-07 07:16] LABS: ANION GAP 10.9 mmol/L (10-20)
[2019-01-07] MEDS: Magnesium Oxide 400 MG Tab PO SCH (08:56)
[2019-01-07] MEDS: amLODIPine 5 MG Tab PO SCH (08:57)
[2019-01-07] MEDS: Azithromycin 250 MG Tab PO SCH (08:57)
[2019-01-07] MEDS: Metoprolol Tartrate 25 MG Tab PO SCH (08:58)
[2019-01-07] MEDS: cefTRIAXone 1 GM Vial IVPUSH SCH (08:59)
[2019-01-07] MEDS: Sodium Chloride 0.9% 10 ML Syringe FLUSH PRN (09:04)
[2019-01-07 09:41] VITALS: BP 142/68; PULSE 79
--- NOTE | 2019-01-07 13:18 | PCM.DCSUM1 ---
Discharge Summary - Hospital Course Free Text/Narrative:: Discharge Diagnoses: -Staph aureus bacteremia -CISCO infiltrate -Adenocarcinoma of lung, CISCO -COPD -Coronary artery disease, on medical management -Hyperlipidemia -S/P laryngectomy for laryngeal carcinoma Reason for admission: Cough, dyspnea, fever of 101 F, lassitude. Suggestion of cellulitis of R lower leg, no break in the skin and no edema but erythema and tenderness. Initial findings: -Tender hyperpigmentation of R lower leg -Suggestion of infiltrate CISCO -Temp of 101 Treatment and Course in Hospital: Sputum and blood cultures done, started on oral Zithromax and IV Rocephin. He became afebrile and felt somewhat better, anxious to go home again as soon as possible but on 01/07/19 2 of his blood cultures came back with staph aureus bacteremia. Because of his Rx with chemotherapy and resultant immune suppression, and his staph aureus bacteremia, his case was discussed with Infectious Disease at [facility] and it was recommended he come there, to at least include echocardiography to rule out heart valve involvement. His Oncology appointment for 01/09/19 has been canceled. Condition on Discharge: -Heart sounds distant but normal and regular -Lung sounds diminished, coarse expiratory rales especially in L upper lobe -Still has tenderness and hyperpigmentation and erythema of R lower leg but no edema and no break in the skin -Minimal to no dyspnea, feeling fairly well -Afebrile Discharge Plan: Discussed with Dr. Mauricio Lofton, ID, and Dr. Jairo Tesfaye, Int Med at [facility], and he is being accepted in transfer to [place] at the [facility]. He will go by BLS because of his saline lock and difficulty ambulating because of his painful R lower leg. He is DNR status. Diagnosis: Stroke: No Modified [place] Scale: Slight Disable;Unable to Carry Out Prev Act.Able to Look After Affairs Modified [place] Scale Score: 2 - Discharge Data Discharge Date: 01/07/19 Discharge Disposition: DC/Tfer to Acute Hospital 02 Condition: Good - Discharge Plan *PRESCRIPTION DRUG MONITORING PROGRAM REVIEWED*: Not Applicable *COPY OF PRESCRIPTION DRUG MONITORING REPORT IN PATIENT TAMRA: Not Applicable Home Medications: Home Meds Simvastatin 1 tab PO BEDTIME 02/24/15 [History] Furosemide 20 mg PO DAILY 07/17/18 [History] metOLazone [Metolazone] 2.5 mg PO DAILY 07/17/18 [History] Acetaminophen [Tylenol Extra Strength] 500 mg PO Q4H PRN tablet 01/07/19 [Rx] Albuterol/Ipratropium [DuoNeb 3.0-0.5 MG/3 ML] 3 ml NEB Q4HRRT PRN neb [Rx] Arformoterol [Brovana] 15 mcg INH BIDRT neb 01/07/19 [Rx] Azithromycin [Zithromax] 500 mg PO DAILY tablet 01/07/19 [Rx] Ipratropium [Atrovent] 0.5 mg INH TID neb 01/07/19 [Rx] Magnesium Oxide 400 mg PO DAILY tablet 01/07/19 [Rx] Metoprolol Tartrate [Lopressor] 25 mg PO BID tablet 01/07/19 [Rx] Prochlorperazine [Compazine] 10 mg PO Q4H PRN tablet 01/07/19 [Rx] Sodium Chloride 0.9% [Saline Flush] 10 ml FLUSH ASDIRECTED PRN syringe [Rx] Warfarin [Coumadin] 2.5 mg PO MOFR@1999 tablet 01/07/19 [Rx] Warfarin [Coumadin] 5 mg PO SUTUWETHSA@1999 tablet 01/07/19 [Rx] amLODIPine [Norvasc] 5 mg PO DAILY tablet 01/07/19 [Rx] cefTRIAXone [Rocephin] 1 gm IVPUSH DAILY vial 01/07/19 [Rx] diphenhydrAMINE [Benadryl] 25 mg PO Q4H PRN cap 01/07/19 [Rx] Patient Handouts: Community-Acquired Pneumonia, Adult Forms: ED Department Discharge, Interfacility Transfer EMTALA Referrals: Peter Bueno MD [Primary Care Provider] - - Discharge Summary/Plan Comment DC Time >30 min.: No - Patient Data Vitals - Most Recent: Last Vital Signs Temp 37.1 C 01/07/19 09:40 Pulse 79 01/07/19 09:40 Resp 20 01/07/19 09:40 BP 142/68 H 01/07/19 09:40 Pulse Ox 96 01/07/19 06:00 Weight - Most Recent: 72.575 kg I&O - Last 24 hours: Intake & Output 01/06/19 01/07/19 01/07/19 22:59 06:59 14:59 Intake Total 250 420 Output Total 250 Balance 0 420 Lab Results - Last 24 hrs: Laboratory Results - last 24 hr 01/06/19 01/07/19 01/07/19 Range/Units 03:05 06:32 06:32 WBC 6.4 (4.0-10.0) x10^3/uL RBC 3.46 L (4.5-6.0) x10^6/uL Hgb 10.7 L (14.0-18.0) g/dL Hct 32.8 L (40.0-52.0) % MCV 94.8 H (78.0-93.0) fL MCH 30.9 (26.0-32.0) pg MCHC 32.6 (32.0-36.0) g/dL RDW Coeff of Leelee 13.0 (10.0-15.0) % Plt Count 182 (130-400) x10^3/uL Neut % (Auto) 59.9 (50.0-80.0) % Lymph % (Auto) 15.4 L (25.0-50.0) % [place] % (Auto) 17.2 H (2.0-11.0) % Eos % (Auto) 7.2 H (0.0-4.0) % Baso % (Auto) 0.3 (0.2-1.2) % PT (10.0-12.8) SEC INR (2.0-3.5) Sodium 142 (136-145) mmol/L Potassium 3.9 (3.5-5.1) mmol/L Chloride 104 (98-107) mmol/L Carbon Dioxide 31 (21-32) mmol/L Anion Gap 10.9 (10-20) mmol/L BUN 19 H (7-18) mg/dL Creatinine 1.0 (0.70-1.30) mg/dL Est Cr Clr Drug Dosing 54.01 mL/min Estimated GFR (MDRD) > 60 Glucose 99 (74-106) mg/dL Calcium 8.5 (8.5-10.1) mg/dL Urine Color [place] H (YELLOW) Urine Appearance Slightly cloudy H (CLEAR) Urine pH 6.0 (5.0-8.0) Ur Specific [place] 1.025 Urine Protein 30 H (NEGATIVE) mg/dL Urine Glucose (UA) Negative (NEGATIVE) mg/dL Urine Ketones Negative (NEGATIVE) mg/dL Urine Occult Blood Negative (NEGATIVE) Urine Nitrite Negative (NEGATIVE) Urine Bilirubin Negative (NEGATIVE) Urine Urobilinogen 0.2 (0.2) EU/dL Ur Leukocyte Esterase Negative (NEGATIVE) Urine RBC 0-5 (NOT SEEN) /HPF Urine WBC 0-5 (NOT SEEN) /HPF Ur Squamous Epith Cells Not seen (NEGATIVE) /HPF Amorphous Sediment Few Urine Bacteria Few H (NEGATIVE) /HPF Urine Mucus Rare H (NEGATIVE) /LPF 01/07/19 Range/Units 06:32 WBC (4.0-10.0) x10^3/uL RBC (4.5-6.0) x10^6/uL Hgb (14.0-18.0) g/dL Hct (40.0-52.0) % MCV (78.0-93.0) fL MCH (26.0-32.0) pg MCHC (32.0-36.0) g/dL RDW Coeff of [place]lee (10.0-15.0) % Plt Count (130-400) x10^3/uL Neut % (Auto) (50.0-80.0) % Lymph % (Auto) (25.0-50.0) % [place] % (Auto) (2.0-11.0) % Eos % (Auto) (0.0-4.0) % Baso % (Auto) (0.2-1.2) % PT 18.3 H (10.0-12.8) SEC INR 1.6 L (2.0-3.5) Sodium (136-145) mmol/L Potassium (3.5-5.1) mmol/L Chloride (98-107) mmol/L Carbon Dioxide (21-32) mmol/L Anion Gap (10-20) mmol/L BUN (7-18) mg/dL Creatinine (0.70-1.30) mg/dL Est Cr Clr Drug Dosing mL/min Estimated GFR (MDRD) Glucose (74-106) mg/dL Calcium (8.5-10.1) mg/dL Urine Color (YELLOW) Urine Appearance (CLEAR) Urine pH (5.0-8.0) Ur Specific [place] Urine Protein (NEGATIVE) mg/dL Urine Glucose (UA) (NEGATIVE) mg/dL Urine Ketones (NEGATIVE) mg/dL Urine Occult Blood (NEGATIVE) Urine Nitrite (NEGATIVE) Urine Bilirubin (NEGATIVE) Urine Urobilinogen (0.2) EU/dL Ur Leukocyte Esterase (NEGATIVE) Urine RBC (NOT SEEN) /HPF Urine WBC (NOT SEEN) /HPF Ur Squamous Epith Cells (NEGATIVE) /HPF Amorphous Sediment Urine Bacteria (NEGATIVE) /HPF Urine Mucus (NEGATIVE) /LPF SAE Results - Last 24 hrs: Microbiology 01/05/19 09:06 Aerobic Blood Culture - Preliminary Blood - Venous - Lab Draw NO GROWTH AFTER 2 DAYS Anaerobic Blood Culture - Final 01/06/19 08:00 Gram Stain - Final Sputum - Expectorated Sputum Culture - Preliminary NORMAL RESPIRATORY VIOLET 1 DAY 01/05/19 09:00 Aerobic Blood Culture - Preliminary Blood - Venous Staphylococcus Aureus Anaerobic Blood Culture - Preliminary Gram Positive Cocci In Clustrs Med Orders - Current: Current Medications Discontinued Medications Acetaminophen (Tylenol Extra Strength) 500 mg PO Q4H PRN PRN Reason: Fever Last Admin: 01/05/19 17:07 Dose: 500 mg Albuterol/Ipratropium (Duoneb 3.0-0.5 Mg/3 Ml) 3 ml NEB Q4HRRT PRN PRN Reason: Cough Amlodipine Besylate (Norvasc) 5 mg PO DAILY [facility] Last Admin: 01/07/19 08:57 Dose: 5 mg Arformoterol Tartrate (Brovana) 15 mcg INH BIDRT [facility] Last Admin: 01/07/19 06:26 Dose: 15 mcg Azithromycin (Zithromax) 500 mg PO DAILY [facility] Last Admin: 01/07/19 08:57 Dose: 500 mg Ceftriaxone Sodium (Rocephin) 2 gm IVPUSH STAT ONE Stop: 01/05/19 09:47 Last Admin: 01/05/19 10:00 Dose: 2 gm Ceftriaxone Sodium (Rocephin) 1 gm IVPUSH DAILY [facility] Last Admin: 01/07/19 08:59 Dose: 1 gm Ceftriaxone Sodium 2 gm/ (Lidocaine HCl 4.2 ml) 0 gm IM ONETIME ONE Stop: 01/05/19 14:03 Last Admin: 01/05/19 15:11 Dose: Not Given Diphenhydramine HCl (Benadryl) 25 mg PO Q4H PRN PRN Reason: Insomnia Last Admin: 01/07/19 02:19 Dose: 25 mg Furosemide (Lasix) 20 mg PO ONETIME ONE Stop: 01/06/19 14:20 Last Admin: 01/06/19 14:38 Dose: 20 mg Azithromycin 500 mg/ Sodium (Chloride) 250 mls @ 250 mls/hr IV STAT ONE Stop: 01/05/19 10:45 Last Admin: 01/05/19 10:01 Dose: 250 mls/hr Iopamidol (Isovue-300 (61%)) 100 ml IVPUSH ONETIME ONE Stop: 01/05/19 10:44 Last Admin: 01/05/19 11:21 Dose: 100 ml Ipratropium [place] (Atrovent) 0.5 mg INH TID [facility] Last Admin: 01/07/19 08:55 Dose: Not Given Lorazepam (Ativan) 0.5 mg PO BEDTIME PRN PRN Reason: Insomnia Last Admin: 01/06/19 20:01 Dose: 0.5 mg Magnesium Oxide (Magnesium Oxide) 400 mg PO DAILY [facility] Last Admin: 01/07/19 08:56 Dose: 400 mg Methylprednisolone Sodium Succinate (Solu-Medrol) 125 mg IVPUSH ONETIME ONE Stop: 01/05/19 14:02 Last Admin: 01/05/19 15:11 Dose: Not Given Metoprolol Tartrate (Lopressor) 25 mg PO BID [facility] Last Admin: 01/07/19 08:58 Dose: 25 mg Prochlorperazine Maleate (Compazine) 10 mg PO Q4H PRN PRN Reason: Nausea/Vomiting Simvastatin (Zocor) 20 mg PO BEDTIME [facility] Last Admin: 01/06/19 19:33 Dose: 20 mg Sodium Chloride (Saline Flush) 10 ml FLUSH ASDIRECTED PRN PRN Reason: Keep Vein Open Last Admin: 01/07/19 09:04 Dose: 10 ml Warfarin Sodium (Coumadin) 5 mg PO BEDTIME [facility] Warfarin Sodium (Coumadin) 5 mg PO SUTUWETHSA@1999 [facility] Last Admin: 01/06/19 19:33 Dose: 5 mg Warfarin Sodium (Coumadin) 2.5 mg PO MOFR@1999 [facility]
[2019-01-07] MEDS ORDERED: Warfarin 2.5 MG Tab PO SCH (20:00)
== END 2019-01-07 10:53 | disposition short-term general hospital (02) | DRG 871 ==
LOC: VM.ED 08:42 → VM.MS 10:02
PROVIDERS: ADMIT Internal Medicine; ATTEND Family Medicine
DX: A41.01 Sepsis due to Methicillin susceptible Staphylococcus aureus (principal); J18.1 Lobar pneumonia, unspecified organism; C34.90 Malignant neoplasm of unspecified part of unspecified bronchus or lung; J18.9 Pneumonia, unspecified organism; E43 Unspecified severe protein-calorie malnutrition; C34.12 Malignant neoplasm of upper lobe, left bronchus or lung; R97.20 Elevated prostate specific antigen [PSA]; Z90.02 Acquired absence of larynx; I50.32 Chronic diastolic (congestive) heart failure; D89.9 Disorder involving the immune mechanism, unspecified; T45.1X5A Adverse effect of antineoplastic and immunosuppressive drugs, initial encounter; Z66 Do not resuscitate; J44.9 Chronic obstructive pulmonary disease, unspecified; I25.10 Atherosclerotic heart disease of native coronary artery without angina pectoris; E78.5 Hyperlipidemia, unspecified; I48.91 Unspecified atrial fibrillation; I34.0 Nonrheumatic mitral (valve) insufficiency; E03.9 Hypothyroidism, unspecified; I49.5 Sick sinus syndrome; I73.9 Peripheral vascular disease, unspecified; R21 Rash and other nonspecific skin eruption; I11.0 Hypertensive heart disease with heart failure; R74.8 Abnormal levels of other serum enzymes; Z79.01 Long term (current) use of anticoagulants; Z79.899 Other long term (current) drug therapy; Z85.21 Personal history of malignant neoplasm of larynx; Z88.8 Allergy status to other drugs, medicaments and biological substances; Z90.49 Acquired absence of other specified parts of digestive tract; Z95.0 Presence of cardiac pacemaker; Z86.010 Personal history of colon polyps; Z87.891 Personal history of nicotine dependence; Z98.42 Cataract extraction status, left eye; Z98.41 Cataract extraction status, right eye; Z98.890 Other specified postprocedural states; Z68.23 Body mass index [BMI] 23.0-23.9, adult
CPT/HCPCS: 36415; 71046; 80053; 83605; 83735; 84100; 85025; 85610; 86140; 87040 ×2; 87077; 96374; 99285; J0456; J0696; J7050; 71275; 80048; 81001; 87070; 87147; 87186; 87205; 94640; 94760; 96375; 99283-GF; A9270-GY; Q9967

== ENCOUNTER 2020-01-29 10:43 | Emergency (ER) | payer MEDICARE, OTHER ==
[2020-01-29] MEDS ORDERED: Sodium Chloride 0.9% 10 ML Syringe FLUSH PRN (10:57)
[2020-01-29] MEDS: fentaNYL 100 MCG/2 ML SDV IVPUSH ONE ×2 (11:08→12:30)
--- NOTE | 2020-01-29 11:29 | EDM.PDOC ---
ED HPI GENERAL MEDICAL PROBLEM - General Chief Complaint: Abdominal Pain Time Seen by Provider: 01/29/20 10:44 Source of Information: Reports: Patient, EMS - History of Present Illness INITIAL COMMENTS - FREE TEXT/NARRATIVE: Adalberto is an 84 y/o male who is brought to the ER by EMS after he was having progressively more post op pain to his right groin region. He also developed scrotal swelling. Patient reports that both of these symptoms started on the day after surgery and have just progressively gotten worse. He reports that pain is getting worse. He rates it 5/10 and took APAP 1gm at 0700 this AM. He had a hard time urinating today due to the scrotal/foreskin swelling. He reports a normal BM yesterday. States it is hard to even walk due to the swelling and pain. He has resumed warfarin post op. Treatments LEPIDOPTERIST: Reports: IV/IO, Other Medication(s) Lower Abdomen Pain Score (Numeric/FACES): 5 - Related Data Allergies Allergy/AdvReac Type Severity Reaction Status Date / Time atorvastatin calcium Allergy Other Verified 01/16/19 14:59 [From Lipitor] Home Meds: Home Meds RX: Simvastatin 1 tab PO BEDTIME 02/24/15 [History] RX: Furosemide 20 mg PO DAILY 07/17/18 [History] RX: Acetaminophen [Tylenol Extra Strength] 500 mg PO Q4H PRN tablet 01/07/19 [Rx] RX: Metoprolol Tartrate [Lopressor] 25 mg PO BID tablet 01/07/19 [Rx] RX: Warfarin [Coumadin] 2.5 mg PO MOFR@1999 tablet 01/07/19 [Rx] RX: Warfarin [Coumadin] 5 mg PO SUTUWETHSA@1999 tablet 01/07/19 [Rx] RX: amLODIPine [Norvasc] 5 mg PO DAILY tablet 01/07/19 [Rx] RX: Ipratropium [place] 1 ampule INH BID 01/16/19 [History] RX: Formoterol [Perforomist] 1 BID 09/10/19 [History] Past Medical History HEENT History: Reports: Cataract Other HEENT History: hypermetropia. astigmatism. presbyopia. myopia Cardiovascular History: Reports: Arrhythmia, High Cholesterol, Hypertension Other Cardiovascular History: sick sinus syndrome, peripheral vascular disease, A fib Respiratory History: Reports: COPD, SOB Other Respiratory History: chronic respiratory failure, carcinoma of lung. SOB with strenous activity Gastrointestinal History: Reports: Colon Polyp Other Gastrointestinal History: elevated PSA Genitourinary History: Reports: Other (See Below) Other Genitourinary History: elevated PSA Musculoskeletal History: Reports: Back Pain, Chronic Neurological History: Reports: TIA Psychiatric History: Denies: Abuse, Victim of Endocrine/Metabolic History: Reports: Hypothyroidism Oncologic (Cancer) History: Reports: Lung Other Oncologic History: larynx cancer - Past Surgical History HEENT Surgical History: Reports: Cataract Surgery Other HEENT Surgeries/Procedures: laryngectomy Cardiovascular Surgical History: Reports: Pacer Respiratory Surgical History: Reports: Lung Biopsies, Other (See Below) Other Respiratory Surgeries/Procedures: laryngectomy GI Surgical History: Reports: Appendectomy, Hernia, Inguinal Other GI Surgeries/Procedures: adenomatous colon polyp Social & Family History - Family History Oncologic: Reports: Brain, Colon, Prostate Other Oncologic Family History: colon- brother. brain- brother - Tobacco Use Smoking Status *Q: Unknown Ever Smoked - Caffeine Use Caffeine Use: Reports: Coffee - Living Situation & Occupation Living situation: Reports: (They have 5 children in the marriage. 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.) Review of Systems - Review of Systems Review Of Systems: See Below Constitutional: Reports: No Symptoms Eyes: Reports: No Symptoms Ears: Reports: No Symptoms Nose: Reports: No Symptoms Mouth/Throat: Reports: No Symptoms Respiratory: Reports: No Symptoms Cardiovascular: Reports: No Symptoms GI/Abdominal: Reports: Other (right groin pain/swelling/bruising) Genitourinary: Reports: Other (scrotal and foreskin swelling/bruising) Musculoskeletal: Reports: No Symptoms Skin: Reports: No Symptoms Neurological: Reports: No Symptoms Psychiatric: Reports: No Symptoms ED EXAM, GENERAL - Physical Exam Exam: See Below General Appearance: Alert, WD/WN, Thin (Elderly male. NAD.) Ears: Hearing Grossly Normal Nose: Normal Inspection Head: Atraumatic, Normocephalic Neck: Other (note S/P laryngectomy) Respiratory/Chest: No Respiratory Distress, Lungs Clear Cardiovascular: Regular Rate, Rhythm, No JVD, No Murmur GI/Abdominal: Normal Bowel Sounds, Other (note incision to right inquinal area healing, very swollen and tender to touch, note large amount of ecchymosis in the groin and on abdomen) (Male) Exam: Scrotal Swelling (scrotum tender all over and foreskin very swollen and difficult to retract) Rectal (Males) Exam: Deferred Extremities: Normal Inspection Neurological: Alert, Oriented, CN II-XII Intact, No Motor/Sensory Deficits Psychiatric: Normal Affect Skin Exam: Warm, Dry, Intact, Normal Color Lymphatic: No Adenopathy Course - Vital Signs Text/Narrative:: 1044 The patient was seen by the [facility]. Labs ordered. He was given Fentanyl 25mg IVP for pain. Will review labs when returned. Larson placed due to excessive swelling in scrotum and foreskin. Plan diagnostic imaging and then will contact Dr Fadi Wilkins in [place] since he is the surgeon who performed the hernia repair on 01/22. 1200 CT done, pending radiology read. 1225 Pain returning, had previous relief from the Fentanyl. Fentanyl 50mcg IVP ordered. [address] notes post op bleeding, Dr Wilkins in [place] paged. 1300 [address] Wilkins returns call and CT discussed. Dr Wilkins contacting the Radiologist to discuss CT films. 1320 Dr Wilkins returns call to [facility]. Advises that patient can go to [place] or [place], option presented to patient who opts for transfer to [place]. Dr Wilkins to call [facility]. Vitamin K 5mg IM given per Dr Wilkins's recommendation. 1420 Pain returning again, Dilaudid 0.5mg IVP given. Dr Wilkins returns call to [facility] and spoke with [facility] surgeon transportation manager, Dr Riley. Dr Riley accepted the patient for transfer, will await bed assignment from [facility]. Vitals remain stable. Last Recorded V/S: Last Vital Signs Temp 37.2 C 01/29/20 13:45 Pulse 84 01/29/20 13:45 Resp 14 01/29/20 13:45 BP 130/59 L 01/29/20 13:45 Pulse Ox 96 01/29/20 13:45 - Orders/Labs/Meds Orders: Active Orders 24 hr Category Date Time Status Larson Catheter Insertion [Insert Urinary Catheter] [OM. Care 01/29/20 11:00 Ordered PC] Q24H Urinary Catheter Assessment [RC] ASDIRECTED Care 01/29/20 10:59 Active UA RFX SAE AND CULT IF INDIC [URIN] Stat Lab 01/29/20 11:26 Ordered Lactated Ringers [Ringers, Lactated] 1,000 ml Med 01/29/20 13:15 Active IV ASDIRECTED Sodium Chloride 0.9% [Saline Flush] Med 01/29/20 10:57 Active 10 ml FLUSH ASDIRECTED PRN Saline Lock Insert [OM.PC] Stat Oth 01/29/20 10:57 Ordered Medication Orders Lactated Ringer's (Ringers, Lactated) 1,000 mls @ 200 mls/hr IV ASDIRECTED CONSTANCE Last Admin: 01/29/20 12:48 Dose: 200 mls/hr Documented by: SADE Sodium Chloride (Saline Flush) 10 ml FLUSH ASDIRECTED PRN PRN Reason: Keep Vein Open Labs: Laboratory Tests 01/29/20 01/29/20 01/29/20 Range/Units 11:10 11:10 11:10 WBC 8.6 (4.0-10.0) x10^3/uL RBC 3.57 L (4.5-6.0) x10^6/uL Hgb 10.3 L (14.0-18.0) g/dL Hct 31.4 L (40.0-52.0) % MCV 88.0 D (78.0-93.0) fL MCH 28.9 (26.0-32.0) pg MCHC 32.8 (32.0-36.0) g/dL RDW Coeff of Leelee 13.9 (10.0-15.0) % Plt Count 209 (130-400) x10^3/uL Neut % (Auto) 77.5 (50.0-80.0) % Lymph % (Auto) 12.6 L (25.0-50.0) % [place] % (Auto) 9.4 (2.0-11.0) % Eos % (Auto) 0.4 (0.0-4.0) % Baso % (Auto) 0.1 L (0.2-1.2) % PT 22.3 H (9.5-12.3) SEC INR 2.1 (2.0-3.5) APTT 33.7 H (25.6-32.8) SEC Sodium 139 (136-145) mmol/L Potassium 4.0 (3.5-5.1) mmol/L Chloride 100 (98-107) mmol/L Carbon Dioxide 28 (21-32) mmol/L Anion Gap 15.0 (10-20) mmol/L BUN 22 H (7-18) mg/dL Creatinine 1.0 (0.70-1.30) mg/dL Est Cr Clr Drug Dosing TNP Estimated GFR (MDRD) > 60 Glucose 122 H (74-106) mg/dL Lactic Acid (0.4-2.0) mmol/L Calcium 9.0 (8.5-10.1) mg/dL Corrected Calcium 9.48 (8.5-10.1) mg/dL Total Bilirubin 1.6 H (0.2-1.0) mg/dL AST 35 (15-37) U/L ALT 47 (16-63) U/L Alkaline Phosphatase 107 (46-116) U/L Total Protein 7.2 (6.4-8.2) g/dL Albumin 3.4 (3.4-5.0) g/dL Globulin 3.8 Albumin/Globulin Ratio 0.89 Urine Color (YELLOW) Urine Appearance (CLEAR) Urine pH (5.0-8.0) Ur Specific [place] Urine Protein (NEGATIVE) mg/dL Urine Glucose (UA) (NEGATIVE) mg/dL Urine Ketones (NEGATIVE) mg/dL Urine Occult Blood (NEGATIVE) Urine Nitrite (NEGATIVE) Urine Bilirubin (NEGATIVE) Urine Urobilinogen (0.2) EU/dL Ur Leukocyte Esterase (NEGATIVE) 01/29/20 01/29/20 Range/Units 11:10 11:20 WBC (4.0-10.0) x10^3/uL RBC (4.5-6.0) x10^6/uL Hgb (14.0-18.0) g/dL Hct (40.0-52.0) % MCV (78.0-93.0) fL MCH (26.0-32.0) pg MCHC (32.0-36.0) g/dL RDW Coeff of [place] (10.0-15.0) % Plt Count (130-400) x10^3/uL Neut % (Auto) (50.0-80.0) % Lymph % (Auto) (25.0-50.0) % [place] % (Auto) (2.0-11.0) % Eos % (Auto) (0.0-4.0) % Baso % (Auto) (0.2-1.2) % PT (9.5-12.3) SEC INR (2.0-3.5) APTT (25.6-32.8) SEC Sodium (136-145) mmol/L Potassium (3.5-5.1) mmol/L Chloride (98-107) mmol/L Carbon Dioxide (21-32) mmol/L Anion Gap (10-20) mmol/L BUN (7-18) mg/dL Creatinine (0.70-1.30) mg/dL Est Cr Clr Drug Dosing Estimated GFR (MDRD) Glucose (74-106) mg/dL Lactic Acid 2.2 H* (0.4-2.0) mmol/L Calcium (8.5-10.1) mg/dL Corrected Calcium (8.5-10.1) mg/dL Total Bilirubin (0.2-1.0) mg/dL AST (15-37) U/L ALT (16-63) U/L Alkaline Phosphatase (46-116) U/L Total Protein (6.4-8.2) g/dL Albumin (3.4-5.0) g/dL Globulin Albumin/Globulin Ratio Urine Color Yellow (YELLOW) Urine Appearance Clear (CLEAR) Urine pH 7.0 (5.0-8.0) Ur Specific [place] 1.025 Urine Protein Negative (NEGATIVE) mg/dL Urine Glucose (UA) Negative (NEGATIVE) mg/dL Urine Ketones Negative (NEGATIVE) mg/dL Urine Occult Blood Negative (NEGATIVE) Urine Nitrite Negative (NEGATIVE) Urine Bilirubin Negative (NEGATIVE) Urine Urobilinogen 0.2 (0.2) EU/dL Ur Leukocyte Esterase Negative (NEGATIVE) Meds: Medications Generic Name Dose Route Start Last Admin Trade Name Freq PRN Reason Stop Dose Admin Lactated Ringer's 1,000 mls @ 200 mls/hr 01/29/20 13:15 01/29/20 12:48 Ringers, Lactated IV 200 mls/hr ASDIRECTED CONSTANCE Administration Sodium Chloride 10 ml 01/29/20 10:57 Saline Flush FLUSH ASDIRECTED PRN Keep Vein Open Discontinued Medications Generic Name Dose Route Start Last Admin Trade Name Fred PRN Reason Stop Dose Admin Fentanyl 25 mcg 01/29/20 10:58 01/29/20 11:08 Sublimaze IVPUSH 01/29/20 10:59 25 mcg ONETIME ONE Administration Fentanyl 50 mcg 01/29/20 12:27 01/29/20 12:30 Sublimaze IVPUSH 01/29/20 12:28 50 mcg ONETIME ONE Administration Hydromorphone HCl 0.5 mg 01/29/20 14:22 01/29/20 14:29 Dilaudid IV 01/29/20 14:23 0.5 mg ONETIME ONE Administration Iopamidol 100 ml 01/29/20 11:59 01/29/20 12:02 Isovue-300 (61%) IVPUSH 01/29/20 12:00 100 ml ONETIME ONE Administration Phytonadione 5 mg 01/29/20 13:25 01/29/20 13:33 Aquamephyton IM 01/29/20 13:26 5 mg ONETIME ONE Administration - Radiology Interpretation Free Text/Narrative:: CT Pelvis W=s/p recent inquinal hernia repair, postsurgical hematoma extending into right scrotum (See final report) CT Results Date: 01/29/20 Departure - Departure Time of Disposition: 14:20 Disposition: DC/Tfer to Acute Hospital 02 Condition: Good Clinical Impression: Postoperative haemorrhage, S/P right inguinal hernia repair, Anticoagulated on warfarin - Discharge Information Referrals: Gabe Maciel PA-C [Primary Care Provider] - Forms: ED Department Discharge, Interfacility Transfer [facility] Sepsis Event Note (ED) - Evaluation Sepsis Screening Result: No Definite Risk - Focused Exam Vital Signs: Vital Signs Temp Pulse Resp BP Pulse Ox 01/29/20 13:45 37.2 C 84 14 130/59 L 96 01/29/20 12:14 37.4 C 86 12 143/56 H 96 01/29/20 10:43 37.3 C 81 20 131/59 L 100 - Problem List Review Problem List Initiated/Reviewed/Updated: Yes - My Orders Last 24 Hours: My Active Orders 01/29/20 10:57 Sodium Chloride 0.9% [Saline Flush] 10 ml FLUSH ASDIRECTED PRN Saline Lock Insert [OM.PC] Stat 01/29/20 10:59 Urinary Catheter Assessment [RC] ASDIRECTED 01/29/20 11:00 Larson Catheter Insertion [Insert Urinary Catheter] [OM.PC] Q24H 01/29/20 11:26 UA RFX SAE AND CULT IF INDIC [URIN] Stat 01/29/20 13:15 Lactated Ringers [Ringers, Lactated] 1,000 ml IV ASDIRECTED - Assessment/Plan Last 24 Hours: My Active Orders 01/29/20 10:57 Sodium Chloride 0.9% [Saline Flush] 10 ml FLUSH ASDIRECTED PRN Saline Lock Insert [OM.PC] Stat 01/29/20 10:59 Urinary Catheter Assessment [RC] ASDIRECTED 01/29/20 11:00 Larson Catheter Insertion [Insert Urinary Catheter] [OM.PC] Q24H 01/29/20 11:26 UA RFX SAE AND CULT IF INDIC [URIN] Stat 01/29/20 13:15 Lactated Ringers [Ringers, Lactated] 1,000 ml IV ASDIRECTED Assessment:: 1)PostOp Hemorrhage 2)S/P Right Inguinal Hernia Repair 3)Anticoagulation Therapy Plan: -Transfer to [facility] to Dr Riley via ground ambulance when bed available
[2020-01-29 11:36] LABS: PTT,PARTIAL THROMBOPLSTIN TIME 33.7 SEC (25.6-32.8)
[2020-01-29 11:40] LABS: CHLORIDE,CL 100 mmol/L (98-107); SODIUM,NA 139 mmol/L (136-145)
[2020-01-29] MEDS: Iopamidol 612 MG/ML 100 ML Bottle IVPUSH ONE (12:02)
--- NOTE | 2020-01-29 12:38 | CT ---
[id number] CT/CT Pelvis W IV EXAM: CT Pelvis W IV INDICATION: Right inguinal swelling, scrotal swelling and increasing pain. History of inguinal hernia repair 01/23/2020. COMPARISON: May 25, 2017. FINDINGS: Evidence of recent right inguinal hernia repair. At the repair site there is infiltrating hemorrhage, blood products, edema and soft tissue gas which extends superiorly into the subcutaneous fat of the right lower quadrant and the right abdominal wall and inferiorly along the inguinal canal into the scrotum. The largest component in the right lower quadrant is about 10 x 6.5 x 11.4 cm and within the right hemiscrotum about 6 x 6 x 10 cm. A hematocrit level within the largest hematoma component is consistent with the clinical history of anticoagulation. There is a potential blush of contrast within the right lower quadrant collection (image 23 series 2 and image 18 series 2) suggestive of active bleeding. Previous left inguinal hernia repair with interval resolution of a left inguinal hematoma. Prostatomegaly. Atherosclerotic plaque in the aorta and its major branches. IMPRESSION: 1. Recent right inguinal hernia repair. Postsurgical hematoma involving the right lower quadrant abdominal wall, subcutaneous fat and extending into the right scrotum. There is evidence of active hemorrhage. Juanito Rodriguez MD 01/29/20 [id number] Thank you for allowing us to participate in the care of your patient.
[2020-01-29] MEDS: Lactated Ringers 1,000 ML IV SCH (12:48)
[2020-01-29] MEDS: HYDROmorphone 0.5 MG/0.5 ML Syringe IV ONE (14:29)
[2020-01-29 16:38] VITALS: BP 150/74; PULSE 84
== END 2020-01-29 16:30 | disposition short-term general hospital (02) ==
LOC: VM.ED 10:43
DX: K91.841 Postprocedural hemorrhage of a digestive system organ or structure following other procedure (principal); E78.00 Pure hypercholesterolemia, unspecified; I10 Essential (primary) hypertension; I48.91 Unspecified atrial fibrillation; J44.9 Chronic obstructive pulmonary disease, unspecified; Z79.01 Long term (current) use of anticoagulants; Z79.899 Other long term (current) drug therapy; Z88.8 Allergy status to other drugs, medicaments and biological substances
CPT/HCPCS: 36415; 51702; 72193; 80053; 81003; 83605; 85025; 85610; 85730; 96361; 96372; 96374; 96375; 96376; 99284; 99285-25; J1170; J3010; J3430; J7120; Q9967

== ENCOUNTER 2020-02-15 08:48 | Inpatient (IN) | payer MEDICARE, OTHER ==
--- NOTE | 2020-02-15 12:40 | HP ---
CHIEF COMPLAINT: Weakness and deconditioning. HISTORY OF PRESENT ILLNESS: An 84-year-old male patient with a significant past medical history for peripheral vascular disease, atrial fibrillation on Coumadin, lung cancer, laryngeal cancer, hypertension, HLD, COPD, and coronary artery disease, was admitted to [facility] in [place] on 02/10/2020, for right leg ischemia. The patient had originally underwent a right inguinal hernia repair on 01/23/2020, which was complicated by postop groin hematoma which was subsequently surgically evacuated on 01/29/2020. The patient was discharged to [facility] on 01/29/2020. The patient did start Coumadin while he was at the rehab facility in [place]. However, on the day of discharge on 02/08/2020, the patient states he could not feel his right foot/leg from the knee down. The patient was seen in followup in clinic for his symptoms and was found that the right lower extremity did not have any pulses. The case was discussed with [facility] [place], and recommended that the patient be transferred to [place] for evaluation and management. The patient underwent CTA runoff, which showed occlusion of the proximal right superficial femoral artery to the level of the Luis Daniel's canal. Therefore, the patient underwent a right leg thrombectomy with right SFA stenting and balloon angioplasty on 02/11/2020. The patient did progress well from a surgical standpoint, however, the patient had issues with urinary retention, which required insertion of a Larson catheter. The patient did undergo bladder trials, which he did fail. The patient continues to have a Larson catheter in. Recommendation is either for removal at receiving facility or urology consultation. The patient offers no specific complaints on admission today. The patient states he has some pain of his right lower extremity. The patient does have scrotal swelling secondary to previous hematoma, but this is getting better. The patient does not have any focal neurological deficits. The patient denies any cough or shortness of breath. The patient does not have any chest pain or palpitations. The patient denies any abdominal pain. He does not feel nauseated. He has not had any recent vomiting. The patient does have a history of a previous laryngectomy, therefore he covers the opening to speak. PAST MEDICAL HISTORY: 1. Abnormal TSH. 2. History of bacteremia. 3. Hypothyroidism. 4. Non-small cell cancer of the left lung. 5. Pneumothorax. 6. Hyperkalemia. 7. Umbilical hernia. 8. Inguinal hernia. 9. Visual field defect. 10.Lower extremity edema. 11.Severe protein calorie malnutrition. 12.Chronic respiratory failure. 13.History of appendicitis. 14.Chronic chemical-induced otitis externa, both ears. 15.Carcinoma of lung. 16.History of abdominal pain. 17.Basal cell carcinoma. 18.Peripheral vascular disease. 19.Left carotid bruit. 20.Adenomatous colon polyp. 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 22.Coronary artery disease. 23.Cardiac pacemaker. 24.Sick sinus syndrome. 25.Hypertension. 26.Anticoagulated on Coumadin. 27.History of elevated PSA. 28.Paroxysmal atrial fibrillation. 29.Hyperlipidemia. SOCIAL HISTORY: The patient is currently . The patient does not smoke cigarettes. The patient does not drink alcohol. FAMILY HISTORY: Noncontributory. SURGICAL HISTORY: 1. Appendectomy. 2. Right femoral popliteal bypass. ALLERGIES: Lipitor. MEDICATIONS: 1. Lovenox 60 mg subcu every 12 hours x4 days. 2. Acetaminophen 325 mg 2 tablets every 4 to 6 hours as needed for pain. 3. Amlodipine 5 mg 1 tablet p.o. daily. 4. Formoterol 20 mcg/2 mL via nebulization 2 times a day. 5. Furosemide 20 mg 1 tablet p.o. daily. 6. Ipratropium 0.5 mg/2.5 mL via nebulizer 3 times a day. 7. Coumadin 2.5 mg daily. 8. Metoprolol 50 mg 1/2 tablet twice daily. 9. Omeprazole 20 mg 1 capsule p.o. daily. 10.Simvastatin 20 mg 1 tablet p.o. daily at bedtime. REVIEW OF SYSTEMS: Skin: Negative. Neurological: Negative. Extremities: Complains of right leg pain. Cardiovascular: Negative. Respiratory: Negative. Abdomen: Negative. PHYSICAL EXAMINATION: General: The patient in no acute distress. The patient is cooperative. The patient is alert. Cardiovascular: Irregularly irregular rhythm, no murmur. Respiratory: Scattered rhonchi, otherwise lungs are clear throughout. Abdomen: Soft and nontender. Bowel sounds are hypoactive x4. Neurological: The patient is alert, the patient is oriented to person, place, and time. No focal neurological deficits. Extremities: Palpable pulses, both lower extremities. Incision is clean, dry, and intact. LABORATORY WORK: None. IMAGING STUDIES: None. ASSESSMENT: 1. Acute ischemia of right lower extremity. 2. Decreased sensation of right lower extremity secondary to ischemia of the right lower extremity. 3. Atrial fibrillation. 4. Lung cancer. 5. Laryngeal cancer, status post laryngectomy in 1995. 6. Hypertension. 7. Hyperlipidemia. 8. Chronic obstructive pulmonary disease. 9. Coronary artery disease. PLAN: An 84-year-old male patient with the above medical history, is admitted to the swing bed unit at [facility] for weakness and deconditioning status post thrombectomy and stenting to the right lower extremity. We will continue the patient on his current medications from discharging facility. The patient will start on Coumadin 2.5 mg tomorrow with a recheck of his INR on Monday. The patient will continue on Lovenox 60 mg twice daily for the next 4 days until INR is therapeutic. We will consult Physical and Occupational Therapy. Case Management will be on board for discharge planning. The patient's diet will be heart healthy. The patient is a modified DNR according to old records and patient's wishes. The patient does wish to transfer to a higher level of care should the need arise. Dr. Myriam Perkins will assume care of this patient on 02/17/2020. TB: 02/15/2020 12:51:01 MODL: 02/15/2020 13:51:05 /[id number]
[2020-02-15] MEDS ORDERED: Bisacodyl 10 MG Supp RECTAL PRN (17:27)
[2020-02-15] MEDS: Enoxaparin 60 MG/0.6 ML Syringe SUBCUT SCH (18:43)
[2020-02-15] MEDS ORDERED: FORMOTEROL INH SCH (20:00)
[2020-02-15] MEDS: Ipratropium 0.02% 0.5 MG/2.5 ML Neb Soln INH SCH (20:45)
[2020-02-15] MEDS: Simvastatin 20 MG Tab PO SCH (20:45)
[2020-02-15] MEDS: Melatonin 3 MG Tab PO PRN (21:28)
[2020-02-15] MEDS: Arformoterol 15 MCG/2 ML Neb Soln INH SCH (21:29)
[2020-02-16] MEDS: Acetaminophen 325 MG Tab PO PRN ×3 (05:55→23:48)
[2020-02-16] MEDS: Enoxaparin 60 MG/0.6 ML Syringe SUBCUT SCH ×2 (05:56→17:42)
[2020-02-16] MEDS: Omeprazole 20 MG Cap.CR PO SCH (05:59)
[2020-02-16] MEDS: Ipratropium 0.02% 0.5 MG/2.5 ML Neb Soln INH SCH ×3 (06:00→19:35)
[2020-02-16] MEDS: Arformoterol 15 MCG/2 ML Neb Soln INH SCH ×2 (06:00→19:35)
[2020-02-16] MEDS: Polyethylene Glycol 3350 Powder 17 GM Packet PO SCH (07:48)
[2020-02-16] MEDS: amLODIPine 5 MG Tab PO SCH (07:48)
[2020-02-16] MEDS: Furosemide 20 MG Tab PO SCH (07:50)
[2020-02-16] MEDS: Simvastatin 20 MG Tab PO SCH (19:34)
[2020-02-16] MEDS ORDERED: Warfarin 5 MG Tab PO SCH (20:00)
[2020-02-17] MEDS: Omeprazole 20 MG Cap.CR PO SCH (06:15)
[2020-02-17] MEDS: Enoxaparin 60 MG/0.6 ML Syringe SUBCUT SCH ×2 (06:15→19:51)
[2020-02-17] MEDS: Acetaminophen 325 MG Tab PO PRN (06:16)
[2020-02-17] MEDS: Arformoterol 15 MCG/2 ML Neb Soln INH SCH ×2 (08:09→19:46)
[2020-02-17] MEDS: Ipratropium 0.02% 0.5 MG/2.5 ML Neb Soln INH SCH ×3 (08:10→19:46)
[2020-02-17] MEDS: Polyethylene Glycol 3350 Powder 17 GM Packet PO SCH (08:55)
[2020-02-17] MEDS: Furosemide 20 MG Tab PO SCH (08:55)
[2020-02-17] MEDS: amLODIPine 5 MG Tab PO SCH (08:56)
[2020-02-17] MEDS: Acetaminophen/HYDROcodone 325-5 MG Tab PO PRN ×2 (16:21→19:47)
[2020-02-17] MEDS: Simvastatin 20 MG Tab PO SCH (19:46)
[2020-02-17] MEDS: Warfarin 5 MG Tab PO SCH (19:47)
[2020-02-17] MEDS ORDERED: Warfarin 2.5 MG Tab PO SCH (20:00)
[2020-02-18] MEDS: Acetaminophen/HYDROcodone 325-5 MG Tab PO PRN ×4 (00:08→19:33)
[2020-02-18] MEDS: Omeprazole 20 MG Cap.CR PO SCH (06:40)
[2020-02-18] MEDS: Ipratropium 0.02% 0.5 MG/2.5 ML Neb Soln INH SCH ×3 (07:14→19:35)
[2020-02-18] MEDS: Arformoterol 15 MCG/2 ML Neb Soln INH SCH ×2 (07:14→19:35)
[2020-02-18] MEDS: Polyethylene Glycol 3350 Powder 17 GM Packet PO SCH (09:56)
[2020-02-18] MEDS: amLODIPine 5 MG Tab PO SCH (09:59)
[2020-02-18] MEDS: Furosemide 20 MG Tab PO SCH (09:59)
[2020-02-18] MEDS: Enoxaparin 60 MG/0.6 ML Syringe SUBCUT SCH ×2 (09:59→19:32)
--- NOTE | 2020-02-18 18:18 | PN ---
Progress Note for RICHY BOLTON Date: 02/17/2020 Room #: VM.202 SUBJECTIVE: This is an 84-year-old male on swing bed after a numb, cool right leg, and he underwent a vascular surgery with Dr. Dunaway on 02/12/2020, a thrombectomy and SFA stent placement. He no longer has any pain in his calf. He has more feeling in it. His foot is warm with a pulse. He had been recovering at a intermediate when he had the acute onset of right lower extremity numbness on 02/07. Prior to that, the patient had been admitted for a scrotal hematoma that occurred after a hernia surgery. He was discharged from that admission on 02/03. His Coumadin had been on hold. He had previously had a hernia surgery on 01/22 for the right inguinal hernia with mesh prior. The Coumadin looks like it was restarted on the day he was discharged to [facility] on the , got 5 mg, got 5 mg yesterday, and is due for 2.5 tonight as per his previous schedule. He did not get any vitamin K that I could find through my investigation. The patient is wondering why his INR went down to 1.1 today. He takes it for atrial fibrillation, but also for his limb ischemia. He has not had any cough. No shortness of breath. OBJECTIVE: Vital Signs: His temperature is 98.5, pulse 91, blood pressure 138/59, respiratory rate 18, and O2 of 98 on room air. General: He is in no acute distress. Heart: Irregularly irregular. Lungs: Sounds are clear to auscultation. Abdomen: Positive bowel sounds. Soft, nontender. He does have a trach in place. Genitourinary: A Larson is in place. He failed some voiding trials. He feels that is probably related to the scrotal swelling. His scrotum is bruised with slight tenderness and hematoma noted. Extremities: The right leg is warm. He has sutures and incision intact over the groin. Mental Status: He is alert and orientated x3. ASSESSMENT AND PLAN: 1. Postoperative from a right inguinal hernia surgery. The patient had the open hernia repair with mesh on 01/23/2020. 2. Urinary retention with groin and scrotal hematoma. We will try a voiding trial and get Urology involved once the patient is up and moving more. 3. Right leg peripheral vascular disease, ischemic leg, status post surgery, doing well. The patient has no pain. 4. Anticoagulation with Coumadin, subtherapeutic for atrial fibrillation and peripheral vascular disease. We continued him on 5 mg daily. We will repeat an INR Monday. He is on Lovenox 60 b.i.d. for 4 days since his discharge, but we will reassess based on his INR Monday. He is currently having no bleeding problems. 5. Tracheostomy. 6. History of lung cancer, felt to be in remission per the patient. 7. History of coronary disease and chronic obstructive pulmonary disease. He is not having any active symptoms. 8. Hypothyroidism, reported in his record. I do not see that he is on any current treatments. I will have to discuss that with the patient further. It looks like though it was due to drugs, so maybe amiodarone in the past. PLAN: The patient will get his sutures out when he is 2 weeks postop, that will be the . We will continue him with therapies. He does have a followup with his surgeon on for the groin hematoma. He also has a vascular followup in March for staple removal, so I will clarify with Dr. Dunaway on that. INR Monday. For pain control, the patient had increased pain, so I did order some hydrocodone in addition to Tylenol. MKA: 02/18/2020 17:33:56 MODL: 02/18/2020 18:15:37 /[id number]
[2020-02-18] MEDS: Warfarin 5 MG Tab PO SCH (19:35)
[2020-02-18] MEDS: Melatonin 3 MG Tab PO PRN (19:35)
[2020-02-18] MEDS: Simvastatin 20 MG Tab PO SCH (19:35)
[2020-02-18] MEDS: Acetaminophen 325 MG Tab PO PRN (21:01)
[2020-02-19] MEDS: Acetaminophen/HYDROcodone 325-5 MG Tab PO PRN ×4 (00:31→19:20)
[2020-02-19] MEDS: Omeprazole 20 MG Cap.CR PO SCH (06:29)
[2020-02-19] MEDS: Arformoterol 15 MCG/2 ML Neb Soln INH SCH ×2 (06:29→19:15)
[2020-02-19] MEDS: Ipratropium 0.02% 0.5 MG/2.5 ML Neb Soln INH SCH ×3 (06:29→19:15)
[2020-02-19] MEDS: Furosemide 20 MG Tab PO SCH (08:07)
[2020-02-19] MEDS: Enoxaparin 60 MG/0.6 ML Syringe SUBCUT SCH ×2 (08:07→19:15)
[2020-02-19] MEDS: amLODIPine 5 MG Tab PO SCH (08:07)
[2020-02-19] MEDS: Polyethylene Glycol 3350 Powder 17 GM Packet PO SCH (08:07)
--- NOTE | 2020-02-19 19:06 | PCM.SN.2 ---
- Free Text/Narrative Note: Discussed INR with patient will get Lovenox tonight. INR in AM and continue Lovenox tomorrow if needed and I expect that we will need to. present for discussion feels patient looks good. He will come over for a follow up with his hernia surgeon to the clinic today.
[2020-02-19] MEDS: Simvastatin 20 MG Tab PO SCH (19:15)
[2020-02-19] MEDS: Warfarin 5 MG Tab PO SCH (19:15)
[2020-02-19] MEDS: Melatonin 3 MG Tab PO PRN (19:21)
[2020-02-20] MEDS: Acetaminophen/HYDROcodone 325-5 MG Tab PO PRN ×2 (01:08→20:03)
[2020-02-20] MEDS: Arformoterol 15 MCG/2 ML Neb Soln INH SCH ×2 (06:01→19:40)
[2020-02-20] MEDS: Omeprazole 20 MG Cap.CR PO SCH (06:02)
[2020-02-20] MEDS: Ipratropium 0.02% 0.5 MG/2.5 ML Neb Soln INH SCH ×3 (06:02→19:40)
[2020-02-20] MEDS: Polyethylene Glycol 3350 Powder 17 GM Packet PO SCH (07:37)
[2020-02-20] MEDS: Furosemide 20 MG Tab PO SCH (07:37)
[2020-02-20] MEDS: amLODIPine 5 MG Tab PO SCH (07:37)
[2020-02-20] MEDS: Enoxaparin 60 MG/0.6 ML Syringe SUBCUT SCH ×2 (09:48→19:41)
[2020-02-20] MEDS: Warfarin 5 MG Tab PO SCH (19:41)
[2020-02-20] MEDS: Simvastatin 20 MG Tab PO SCH (19:41)
[2020-02-21] MEDS: Acetaminophen 325 MG Tab PO PRN ×2 (00:55→08:27)
[2020-02-21] MEDS: Acetaminophen/HYDROcodone 325-5 MG Tab PO PRN ×2 (01:59→21:57)
[2020-02-21] MEDS: Omeprazole 20 MG Cap.CR PO SCH (06:12)
[2020-02-21] MEDS: Ipratropium 0.02% 0.5 MG/2.5 ML Neb Soln INH SCH ×3 (07:15→19:49)
[2020-02-21] MEDS: Arformoterol 15 MCG/2 ML Neb Soln INH SCH ×2 (07:15→19:49)
[2020-02-21] MEDS: Furosemide 20 MG Tab PO SCH (08:25)
[2020-02-21] MEDS: amLODIPine 5 MG Tab PO SCH (08:26)
[2020-02-21] MEDS: Polyethylene Glycol 3350 Powder 17 GM Packet PO SCH (08:26)
--- NOTE | 2020-02-21 11:13 | PN ---
Progress Note for RICHY BOLTON Date: 02/21/2020 Room #: VM.202 SUBJECTIVE: This is an 84-year-old on swing bed after peripheral vascular surgery on the right leg. He states the leg is fine, but his toe feels like a rock, but it has felt like that before. The leg is warm and pulses are good. Little bit dry today, so we rubbed some lotion on it. His other concern is his stoma. He feels like it is thick in there and he is getting out a little bit of blood. Otherwise, he is breathing okay. He feels he needs to do some suctioning with saline today. Otherwise, his INR is up to 1.8. He got his last dose of Lovenox last night. He is on Coumadin for AFib and the peripheral vascular disease. His hemoglobin was 9.2 yesterday. Discussed with him that it had been over 9 on rounds. He was having some constipation, but had bowel movements after getting some senna and prune juice. OBJECTIVE: Vital Signs: His temperature 98.2, his pulse 89, blood pressure 145/75, respiratory rate 19, and O2 of 99% on room air. General: He is in no acute distress. Heart: Irregularly irregular. Chest: His lung sounds are clear to auscultation bilaterally without crackles or wheezes. Extremities: Warm and dry. [place] in place. Incisions are without redness or drainage. 2+ pulse on the right foot. It is warm and dry. Mental Status: Alert and orientated x3. ASSESSMENT: 1. Postoperative from a right inguinal hernia surgery. He saw his surgeon this week. He is doing well. 2. Urinary retention due to a groin and scrotal hematoma. He has the catheter in place. We will need to follow up with Urology for a voiding trial. 3. Right leg peripheral vascular disease. Ischemic leg status post surgery, doing well. [place] are supposed to come out when he sees his surgeon next month. 4. Anticoagulation on Coumadin. INR is 1.8. Discussed holding Lovenox today and repeating an INR tomorrow. If it happens to be under 2, would need a 60 mg dose of Lovenox if 1.8 or less. 5. Tracheostomy. We will get RT involved for saline suctioning. 6. History of lung cancer, in remission. 7. History of coronary artery disease and chronic obstructive pulmonary disease, stable. 8. Hypothyroidism based on record. No current treatments. PLAN: The patient will continue on swing bed cares. He will continue working with therapy. Sounds like Monday next week is the day he may return home. He has also been getting a bowel regimen and has used some hydrocodone for pain, which is likely contributing to the constipation. Would also contribute to urinary retention, so likely his voiding trial is going to be after he gets home. MKA: 02/21/2020 09:32:08 MODL: 02/21/2020 10:25:55 /[id number]
[2020-02-21] MEDS: Simvastatin 20 MG Tab PO SCH (19:49)
[2020-02-21] MEDS: Melatonin 3 MG Tab PO PRN (19:49)
[2020-02-21] MEDS: Warfarin 5 MG Tab PO SCH (19:50)
[2020-02-22] MEDS: Omeprazole 20 MG Cap.CR PO SCH (06:39)
[2020-02-22] MEDS: Ipratropium 0.02% 0.5 MG/2.5 ML Neb Soln INH SCH ×3 (07:04→19:46)
[2020-02-22] MEDS: Arformoterol 15 MCG/2 ML Neb Soln INH SCH ×2 (07:04→19:46)
[2020-02-22] MEDS: Polyethylene Glycol 3350 Powder 17 GM Packet PO SCH (08:43)
[2020-02-22] MEDS: Furosemide 20 MG Tab PO SCH (08:43)
[2020-02-22] MEDS: amLODIPine 5 MG Tab PO SCH (08:43)
[2020-02-22] MEDS: Simvastatin 20 MG Tab PO SCH (19:47)
[2020-02-22] MEDS: Melatonin 3 MG Tab PO PRN (19:47)
[2020-02-22] MEDS: Metoprolol Tartrate 25 MG Tab PO SCH (19:47)
[2020-02-22] MEDS: Acetaminophen/HYDROcodone 325-5 MG Tab PO PRN (19:54)
[2020-02-22] MEDS ORDERED: Warfarin 2.5 MG Tab PO SCH (20:00)
[2020-02-23] MEDS: Omeprazole 20 MG Cap.CR PO SCH (06:34)
[2020-02-23] MEDS: Arformoterol 15 MCG/2 ML Neb Soln INH SCH ×2 (07:10→19:24)
[2020-02-23] MEDS: Ipratropium 0.02% 0.5 MG/2.5 ML Neb Soln INH SCH ×3 (07:10→19:24)
[2020-02-23] MEDS: Metoprolol Tartrate 25 MG Tab PO SCH ×2 (07:58→19:24)
[2020-02-23] MEDS: Polyethylene Glycol 3350 Powder 17 GM Packet PO SCH ×2 (07:58→12:25)
[2020-02-23] MEDS: Furosemide 20 MG Tab PO SCH (07:58)
[2020-02-23] MEDS: amLODIPine 5 MG Tab PO SCH (07:58)
[2020-02-23] MEDS: Warfarin 5 MG Tab PO SCH (19:24)
[2020-02-23] MEDS: Simvastatin 20 MG Tab PO SCH (19:24)
[2020-02-23] MEDS: Melatonin 3 MG Tab PO PRN (19:25)
[2020-02-23] MEDS: Acetaminophen/HYDROcodone 325-5 MG Tab PO PRN (19:29)
[2020-02-24] MEDS: Arformoterol 15 MCG/2 ML Neb Soln INH SCH ×2 (06:24→20:06)
[2020-02-24] MEDS: Omeprazole 20 MG Cap.CR PO SCH (06:24)
[2020-02-24] MEDS: Ipratropium 0.02% 0.5 MG/2.5 ML Neb Soln INH SCH ×3 (06:24→20:06)
[2020-02-24] MEDS: Polyethylene Glycol 3350 Powder 17 GM Packet PO SCH (07:48)
[2020-02-24] MEDS: Furosemide 20 MG Tab PO SCH (07:49)
[2020-02-24] MEDS: Metoprolol Tartrate 25 MG Tab PO SCH ×2 (07:49→20:12)
[2020-02-24] MEDS: amLODIPine 5 MG Tab PO SCH (07:49)
--- NOTE | 2020-02-24 13:40 | PN ---
Progress Note for RICHY BOLTON Date: 02/24/2020 Room #: VM.202 SUBJECTIVE: An 84-year-old seen for swing bed. The patient has several questions today prior to going home tomorrow. The 1st question is about his blood pressure. He was restarted on his metoprolol that was inadvertently missed on admission, now his blood pressure is much better. He also questions his lab work with his hemoglobin coming up to 9.5, and INR therapeutic at 2, and his ability to shower with the med in. The nurse will look into that. His med are supposed to stay until March when he sees his surgeon. Lastly, he wonders about getting the catheter out. He still has some swelling in his scrotum from the hematoma after hernia surgery. Then he ended up with emergency peripheral vascular surgery. All of that is healing up, but he is still using a pain pill at night, but thinks he can go without it. He has not had a regular bowel movement for several days. They have been watery, but prior to that he was constipated and then took some more medications, so we held off on the MiraLAX today. He also does feel like he would benefit from some home health for therapies and his also might need it for her shoulder surgery because she does not drive. OBJECTIVE: VITAL SIGNS: His temperature is 97.5, pulse 82, blood pressure 126/57, respiratory rate 16, and O2 of 98% on room air. GENERAL: He is in no acute distress. HEART: Irregularly irregular, without murmur. LUNGS: Lung sounds are clear to auscultation bilaterally without crackles or wheezes. EXTREMITIES: Warm and dry. The right leg is warm. Med intact. Incisions are clean without drainage. No redness. Mental Status: He is alert and orientated x3. LABORATORY DATA: His hemoglobin is up to 9.5, and his INR was 2.1 on 02/21, white count 6.1, and platelets 327. ASSESSMENT AND PLAN: 1. Postop from a right inguinal hernia surgery with hematoma of the scrotum, resolving. 2. Urinary retention due to a scrotal hematoma. Due to the patient reporting it was hard to get the catheter back in and the swelling not fully gone, we will hold off on a voiding trial now and have him follow up outpatient with Urology when he is recovered better. There had been no history of benign prostatic hypertrophy prior to this per the patient. 3. Anticoagulation on Coumadin for peripheral vascular disease and atrial fibrillation, doing well. We will continue 5 mg daily and recheck an INR on the . 4. Peripheral vascular disease. 5. Tracheostomy. 6. Lung cancer in remission. 7. History of coronary disease and chronic obstructive pulmonary disease, all stable. 8. Hypothyroidism based on record. Remotely in his record I found a report of BPH so Flomax 0.4 mg at bedtime ordered to give him the best chance to get the catheter out. PLAN: The patient is doing well. We will get him ready for discharge home with home health tomorrow and I will coordinate a urology appointment through the clinic. Flomax 0.4 mg at bedtime to help with voiding. MKA: 02/24/2020 13:10:52 MODL: 02/24/2020 13:31:22 /[id number]
[2020-02-24] MEDS ORDERED: Tamsulosin 0.4 MG Cap.ER PO SCH (20:00)
[2020-02-24] MEDS: Simvastatin 20 MG Tab PO SCH (20:06)
[2020-02-24] MEDS: Acetaminophen 325 MG Tab PO PRN (20:06)
[2020-02-24] MEDS: Warfarin 5 MG Tab PO SCH (20:06)
[2020-02-25] MEDS: Omeprazole 20 MG Cap.CR PO SCH (06:15)
[2020-02-25] MEDS: Ipratropium 0.02% 0.5 MG/2.5 ML Neb Soln INH SCH (07:15)
[2020-02-25] MEDS: Arformoterol 15 MCG/2 ML Neb Soln INH SCH (07:15)
[2020-02-25] MEDS: Metoprolol Tartrate 25 MG Tab PO SCH (07:44)
[2020-02-25] MEDS: amLODIPine 5 MG Tab PO SCH (07:44)
[2020-02-25 07:45] VITALS: BP 127/56; PULSE 103
[2020-02-25] MEDS: Furosemide 20 MG Tab PO SCH (07:45)
--- NOTE | 2020-02-25 20:24 | DISCH ---
PRIMARY DISCHARGE DIAGNOSES: Postoperative from an ischemic leg, status post surgery with Dr. Dunaway on 02/10 for a thrombosis of the right superficial artery, atherosclerotic occlusive disease of the superficial femoral artery, high-grade stenosis of the right popliteal artery and suspected possible small thrombosis of the foot, anterior tibioperoneal artery runoff patent, anemia, chronic probably due to chronic disease, but worsening due to his recent events. Hemoglobin up to 9.5 on discharge. He had an exploration of the right common femoral artery and proximal superficial femoral artery, thrombectomy of the superficial femoral artery, balloon thrombectomy of the right deep femoral artery, exploration of the right distal superficial femoral artery, proximal popliteal artery with attempted balloon thrombectomy of the popliteal and more proximal superficial artery per a cardial patch angioplasty, repair of the distal superficial femoral artery, and primary closure of the common femoral artery, and balloon dilation through the SFA right leg, and placement of self-expanding stents, balloon dilation angioplasty of the right popliteal artery, and exploration of [id number] popliteal and tibial arteries. The patient had numbness and could not feel his leg and foot. That has recovered. His extremities were warm. They were not swollen. He had an uneventful recovery at our hospital. SECONDARY DISCHARGE DIAGNOSES: Include: 1. A groin hematoma after right inguinal hernia surgery repair with scrotal swelling. 2. Urinary retention due to scrotal hematoma with remote history of benign prostatic hyperplasia. 3. Anticoagulation on Coumadin for atrial fibrillation and peripheral vascular disease, requiring Lovenox for bridging. 4. Tracheostomy. 5. Lung cancer in remission. 6. Hypothyroidism in the past from cancer treatments, not currently on thyroid medications. 7. History of coronary artery disease and chronic obstructive pulmonary disease, both stable. REASON FOR ADMISSION: On the date of admission, this 84-year-old transferred from [place] for further cares on swing bed. The patient had been in [place], recovering at a rehab facility when unfortunately his leg became numb. He was transferred to [place], where he underwent surgery. He did not require any blood transfusions on his recent stay. His wounds were all healing nicely and med were in place with plans for Dr. Dunaway to remove them in March. The patient did have catheter placed for urinary retention and he failed his voiding trials. Therefore, a new catheter has been in place since he came. The patient required Lovenox until the morning of 02/20 when his INR was up to 1.8. Then, on 02/21, it was 2.1. He continued Coumadin 5 mg daily, but received 2.5 on the and back to 5 mg daily. His discharging INR was 2.0 yesterday. The patient's breathing was good during his stay, but his blood pressure did start trending up. It was discovered that his metoprolol was not ordered on admission. That was restarted and blood pressure improved. Then, Flomax was added, and his blood pressure was running lower like 106/60, but he was not lightheaded or dizzy. Decision was made due to the fact that he still had scrotal swelling that I did look at on admission, but did not examine again today that we would wait on trying another voiding trial until he could see the urologist in case the catheter needed to be replaced because he did say it was a difficult placement. PHYSICAL EXAMINATION: Discharge Vitals: Include a temperature of 98.3, pulse 82, blood pressure 121/57, respiratory rate 16, and O2 of 100% on room air. General: He is in no acute distress. Heart: Irregularly irregular. Lungs: His lung sounds are clear to auscultation with some slight rhonchi in the right base, but no crackles or wheezes. Abdomen: Has positive bowel sounds. Soft, nontender. Extremities: Warm and dry. No edema. He has med in place. Incisions are intact with no redness or drainage. Neurologic: He is alert and oriented x3. DISCHARGE PLANS AND INSTRUCTIONS: The patient is going home with [facility] and his is at home. He will follow up in the clinic with Urology on 03/09 and [facility] will remove his catheter that morning. He will have his next INR check on 02/26. He is not due for any other lab work, but probably should have a CBC in the next month. Can coordinate with other labs. He mentions he might need to see the thyroid specialist again soon. He will also see Gabe Maciel or his post hospital followup on 03/10. He will return to see his surgeon in March for staple removal. He will use Flomax 0.4 mg at bedtime. If he becomes lightheaded or dizzy, he will notify us and will cut back on his Lasix. He will use Tylenol only for pain and he will use stool softeners as needed. He was using some hydrocodone pain pills, but those were discontinued a couple of days ago. [id number] encounter occurred with myself on 02/25/2020. Primary reasons for home health care are for teaching and assessments of the catheter as well as recovery with therapies after the recent event. He will be working with PT for improved mobility. He is homebound due to his recent events of surgery with hernia, groin hematoma, and then peripheral vascular disease. He does require the assistance of another person to leave his home and he understands that he is not to be driving. I will periodically review this plan of care. MKA: 02/25/2020 17:20:48 MODL: 02/25/2020 20:16:43 /[id number]
== END 2020-02-25 10:30 | disposition home health service (06) | DRG 947 ==
LOC: VM.MS 12:21
PROVIDERS: ADMIT Nurse Practitioner Family; ATTEND Internal Medicine
DX: R53.1 Weakness (principal); E43 Unspecified severe protein-calorie malnutrition; I97.638 Postprocedural hematoma of a circulatory system organ or structure following other circulatory system procedure; J96.10 Chronic respiratory failure, unspecified whether with hypoxia or hypercapnia; I99.8 Other disorder of circulatory system; I10 Essential (primary) hypertension; E78.5 Hyperlipidemia, unspecified; J44.9 Chronic obstructive pulmonary disease, unspecified; I25.10 Atherosclerotic heart disease of native coronary artery without angina pectoris; D64.9 Anemia, unspecified; I73.9 Peripheral vascular disease, unspecified; I70.201 Unspecified atherosclerosis of native arteries of extremities, right leg; N40.1 Benign prostatic hyperplasia with lower urinary tract symptoms; R33.8 Other retention of urine; E03.9 Hypothyroidism, unspecified; I48.0 Paroxysmal atrial fibrillation; E87.5 Hyperkalemia; K42.9 Umbilical hernia without obstruction or gangrene; Z79.01 Long term (current) use of anticoagulants; Z85.21 Personal history of malignant neoplasm of larynx; Z79.899 Other long term (current) drug therapy; Z85.118 Personal history of other malignant neoplasm of bronchus and lung; Z93.0 Tracheostomy status; Z95.0 Presence of cardiac pacemaker; Z90.49 Acquired absence of other specified parts of digestive tract; Z95.820 Peripheral vascular angioplasty status with implants and grafts; Z98.890 Other specified postprocedural states
CPT/HCPCS: 36415; 85025; 85610; 94640; 97110-GP; 97116-GP; 97161-GP; 97165-GO; 97530-GP; 97535-GO; A9270-GY; J1650

== ENCOUNTER 2020-04-04 15:01 | Emergency (ER) | payer MEDICARE, OTHER ==
[2020-04-04] MEDS ORDERED: Sodium Chloride 0.9% 10 ML Syringe FLUSH PRN (15:29)
[2020-04-04] MEDS ORDERED: Lidocaine 2% HCl 11 ML Jelly Filled Syringe MUCMEM ONE (15:30)
[2020-04-04 16:08] LABS: ANION GAP 11.8 mmol/L (10-20)
--- NOTE | 2020-04-04 17:43 | CT ---
[id number] CT/CT Abdomen Pelvis W IV EXAM: CT Abdomen Pelvis W IV CLINICAL DATA: ABDOMEN DISTENTION INGUINAL HERNIA. COMPARISON STUDY: CT of the abdomen/pelvis from 2018. CTA chest from December 2018. FINDINGS: Trace right pleural effusion. Abnormal appearance of the liver consistent with cirrhosis. Findings have progressed since prior CT in 2018. Linear contrast filled structure that appears to be the lateral segment of the left hepatic lobe. This is contiguous with the portal vasculature, possibly a portal caval shunt. This was seen in 2018 but has increased in size, likely secondary to increased portal hypertension. Other signs of portal hypertension include small varices in the upper abdomen as well as ascites throughout the abdomen/pelvis. Sigmoid segment of the colon is located in the upper abdomen. This was seen in 2018 and is similar in morphology. There is gastric distention extending into a sliding-type hiatus hernia. No evidence of outlet obstruction. No small bowel obstruction or evidence of enteritis. Duodenal diverticulum containing debris. Excessive stool burden in the cecum and ascending segment of the colon. Gaseous distention throughout the remainder of the colon. Urinary bladder is partially decompressed by Larson catheter extends through markedly enlarged prostate gland. Varices extend into the pelvis Extensive calcified atherosclerotic plaque throughout the abdominal aorta. No aneurysm. Spondylosis. No acute fracture or compression deformity. IMPRESSION: Hepatic cirrhosis and portal hypertension, including ascites throughout the abdomen and pelvis as well as anasarca throughout the soft tissues. Findings have progressed since prior CT in 2018. Possible portal caval shunt in the lateral segment of the left hepatic lobe. After paracentesis, consider liver protocol MRI of the abdomen with and without contrast using Eovist contrast to evaluate for hepatocellular carcinoma. Multiple other chronic findings are described in detail in the body of the report. Jhoan Hinds MD 04/04/20 1989 Thank you for allowing us to participate in the care of your patient.
[2020-04-04] MEDS ORDERED: Iopamidol 612 MG/ML 100 ML Bottle IVPUSH ONE (17:52)
[2020-04-04 17:53] VITALS: BP 133/62; PULSE 70
[2020-04-04] MEDS ORDERED: Take Home: Cephalexin 500 MG Cap, 4 Cap Pack PO ONE (18:06)
[2020-04-04] MEDS ORDERED: Cephalexin 500 MG Cap PO ONE (18:06)
--- NOTE | 2020-04-04 18:13 | EDM.PDOC ---
ED HPI GENERAL MEDICAL PROBLEM - General Chief Complaint: Genitourinary Problem Stated Complaint: UNABLE TO URINATE Time Seen by Provider: 04/04/20 15:05 Source of Information: Reports: Patient History Limitations: Reports: No Limitations - History of Present Illness INITIAL COMMENTS - FREE TEXT/NARRATIVE: Patient comes emergency department today with complaints of inability to urinate. This patient over the past couple of days has had increasing difficulty with urination. He has quite a bit of swelling to his penis as well as his abdomen and pressure. He was seen in the clinic on Monday due to his inability to urinate with all the swelling of his penis and he was told to put some Vaseline on it which helped a little bit and then eventually was unable to urinate again at home. Prior to this he has been struggling over the past month or so with difficulty with urination. He has not any fever or chills. He has really noticed quite a bit of distention and tightness to his abdomen. He has no abdominal pain. No nausea no vomiting. No fever no chills. No hematuria dysuria or urinary frequency. He recently had a hernia repair in December or January which he was told that would solve all the swelling in his groin but it has not. No Covid exposure no Covid symptoms. Tells me has no history of liver failure or needs for paracentesis with his distended abdomen. abdomen and legs Pain Score (Numeric/FACES): 8 - Related Data Allergies Allergy/AdvReac Type Severity Reaction Status Date / Time atorvastatin calcium Allergy Other Verified 01/16/19 14:59 [From Lipitor] Home Meds: Home Meds Simvastatin 20 mg PO BEDTIME 02/24/15 [History] amLODIPine [Norvasc] 5 mg PO DAILY tablet 01/07/19 [Rx] Acetaminophen [Tylenol] 650 mg PO Q4H PRN 02/15/20 [History] Formoterol [Perforomist] 1 ampule INH BID 02/15/20 [History] Ipratropium [Atrovent] 1 ampule INH TID 02/15/20 [History] Metoprolol Tartrate 25 mg PO BID 02/22/20 [History] Furosemide [Lasix] 20 mg PO DAILY tablet 02/24/20 [Rx] Tamsulosin [Flomax] 0.4 mg PO BEDTIME #30 cap.er 02/24/20 [Rx] Warfarin [Coumadin] 5 mg PO DAILY tablet 02/24/20 [Rx] Gabapentin [Neurontin] 300 mg PO TID 04/04/20 [History] cephALEXin [Cephalexin] 500 mg PO QID #20 capsule 04/04/20 [Rx] Past Medical History HEENT History: Reports: Cataract Other HEENT History: hypermetropia. astigmatism. presbyopia. myopia Cardiovascular History: Reports: Arrhythmia, High Cholesterol, Hypertension Other Cardiovascular History: sick sinus syndrome, peripheral vascular disease, A fib Respiratory History: Reports: COPD, SOB Other Respiratory History: chronic respiratory failure, carcinoma of lung. SOB with strenous activity Gastrointestinal History: Reports: Colon Polyp Other Gastrointestinal History: elevated PSA Genitourinary History: Reports: Other (See Below) Other Genitourinary History: elevated PSA Musculoskeletal History: Reports: Back Pain, Chronic Neurological History: Reports: TIA Endocrine/Metabolic History: Reports: Hypothyroidism Oncologic (Cancer) History: Reports: Lung Other Oncologic History: larynx cancer - Past Surgical History HEENT Surgical History: Reports: Cataract Surgery Other HEENT Surgeries/Procedures: laryngectomy Cardiovascular Surgical History: Reports: Pacer Respiratory Surgical History: Reports: Lung Biopsies, Other (See Below) Other Respiratory Surgeries/Procedures: laryngectomy GI Surgical History: Reports: Appendectomy, Hernia, Inguinal Other GI Surgeries/Procedures: adenomatous colon polyp Social & Family History - Family History Oncologic: Reports: Brain, Colon, Prostate Other Oncologic Family History: colon- brother. brain- brother - Tobacco Use Tobacco Use Status *Q: Never Tobacco User Second Hand Smoke Exposure: No - Caffeine Use Caffeine Use: Reports: None - Recreational Drug Use Recreational Drug Use: No Drug Use in Last 12 Months: No - Living Situation & Occupation Living situation: Reports: (They have 5 children in the marriage. 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 ED EXAM, RENAL/ - Physical Exam Exam: See Below Exam Limited By: No Limitations General Appearance: Alert, WD/WN, No Apparent Distress Ears: Normal External Exam Nose: Normal Inspection Throat/Mouth: Normal Inspection Head: Atraumatic, Normocephalic Neck: Normal Inspection, Supple Respiratory/Chest: No Respiratory Distress, Lungs Clear, Normal Breath Sounds, Chest Non-Tender Cardiovascular: Normal Peripheral Pulses, Regular Rate, Rhythm GI/Abdominal: Normal Bowel Sounds, Distended (Is a very distended tight abdomen that is nontender. There is no hernia. He has a questionable fluid wave across his abdomen. It is very tight across his abdomen.), Other (Is quite a bit of what appears to be anasarca of the pelvic region and the upper thighs.) (Male) Exam: Hernia (There is a noted hernia to the right scrotum.), Scrotal Swelling (Amount of scrotal swelling), Other (The penis in of itself is quite fluid edematous. There is no erythema induration. There is no tenderness. I am able to identify the urinary meatus although it is difficult with the amount of swelling. There is no drainage from the urinary meatus.). No: Scrotum Tenderness (L), Scrotum Tenderness (R) Extremities: Normal Range of Motion, Normal Capillary Refill, Pedal Edema (But a bit of edema to his lower extremities concerning for anasarca) Neurological: Alert, Oriented, Normal Cognition, No Motor/Sensory Deficits Psychiatric: Normal Affect, Normal Mood Skin Exam: Warm, Dry, Intact, Normal Color Course - Vital Signs Last Recorded V/S: Last Vital Signs Temp 99.7 F 04/04/20 17:52 Pulse 70 04/04/20 17:52 Resp 18 04/04/20 17:52 BP 133/62 04/04/20 17:52 Pulse Ox 98 04/04/20 17:52 - Orders/Labs/Meds Labs: Laboratory Tests 04/04/20 04/04/20 04/04/20 Range/Units 15:39 15:39 15:39 WBC 6.1 (4.0-10.0) x10^3/uL RBC 3.41 L (4.5-6.0) x10^6/uL Hgb 9.5 L (14.0-18.0) g/dL Hct 31.0 L (40.0-52.0) % MCV 90.9 (78.0-93.0) fL MCH 27.9 (26.0-32.0) pg MCHC 30.6 L (32.0-36.0) g/dL RDW Coeff of Leelee 15.5 H (10.0-15.0) % Plt Count 251 D (130-400) x10^3/uL Neut % (Auto) 58.1 (50.0-80.0) % Lymph % (Auto) 20.2 L (25.0-50.0) % [place] % (Auto) 12.9 H (2.0-11.0) % Eos % (Auto) 8.6 H (0.0-4.0) % Baso % (Auto) 0.2 (0.2-1.2) % Sodium 142 (136-145) mmol/L Potassium 3.8 (3.5-5.1) mmol/L Chloride 106 (98-107) mmol/L Carbon Dioxide 28 (21-32) mmol/L Anion Gap 11.8 (10-20) mmol/L BUN 20 H (7-18) mg/dL Creatinine 1.2 (0.70-1.30) mg/dL Est Cr Clr Drug Dosing 42.75 mL/min Estimated GFR (MDRD) 57 Glucose 141 H (74-106) mg/dL Lactic Acid 1.7 (0.4-2.0) mmol/L Calcium 8.7 (8.5-10.1) mg/dL Corrected Calcium 9.66 (8.5-10.1) mg/dL Total Bilirubin 0.9 (0.2-1.0) mg/dL AST 22 (15-37) U/L ALT 21 (16-63) U/L Alkaline Phosphatase 110 (46-116) U/L C-Reactive Protein 2.8 H (<=0.9) mg/dL Total Protein 6.0 L (6.4-8.2) g/dL Albumin 2.8 L (3.4-5.0) g/dL Globulin 3.2 Albumin/Globulin Ratio 0.88 Urine Color (YELLOW) Urine Appearance (CLEAR) Urine pH (5.0-8.0) Ur Specific [place] Urine Protein (NEGATIVE) mg/dL Urine Glucose (UA) (NEGATIVE) mg/dL Urine Ketones (NEGATIVE) mg/dL Urine Occult Blood (NEGATIVE) Urine Nitrite (NEGATIVE) Urine Bilirubin (NEGATIVE) Urine Urobilinogen (0.2) EU/dL Ur Leukocyte Esterase (NEGATIVE) Urine RBC (NOT SEEN) /HPF Urine WBC (NOT SEEN) /HPF Ur Squamous Epith Cells (NEGATIVE) /HPF Urine Bacteria (NEGATIVE) /HPF 04/04/20 Range/Units 16:23 WBC (4.0-10.0) x10^3/uL RBC (4.5-6.0) x10^6/uL Hgb (14.0-18.0) g/dL Hct (40.0-52.0) % MCV (78.0-93.0) fL MCH (26.0-32.0) pg MCHC (32.0-36.0) g/dL RDW Coeff of Leelee (10.0-15.0) % Plt Count (130-400) x10^3/uL Neut % (Auto) (50.0-80.0) % Lymph % (Auto) (25.0-50.0) % [place] % (Auto) (2.0-11.0) % Eos % (Auto) (0.0-4.0) % Baso % (Auto) (0.2-1.2) % Sodium (136-145) mmol/L Potassium (3.5-5.1) mmol/L Chloride (98-107) mmol/L Carbon Dioxide (21-32) mmol/L Anion Gap (10-20) mmol/L BUN (7-18) mg/dL Creatinine (0.70-1.30) mg/dL Est Cr Clr Drug Dosing mL/min Estimated GFR (MDRD) Glucose (74-106) mg/dL Lactic Acid (0.4-2.0) mmol/L Calcium (8.5-10.1) mg/dL Corrected Calcium (8.5-10.1) mg/dL Total Bilirubin (0.2-1.0) mg/dL AST (15-37) U/L ALT (16-63) U/L Alkaline Phosphatase (46-116) U/L C-Reactive Protein (<=0.9) mg/dL Total Protein (6.4-8.2) g/dL Albumin (3.4-5.0) g/dL Globulin Albumin/Globulin Ratio Urine Color Yellow (YELLOW) Urine Appearance Clear (CLEAR) Urine pH 5.0 (5.0-8.0) Ur Specific [place] 1.020 Urine Protein Negative (NEGATIVE) mg/dL Urine Glucose (UA) Negative (NEGATIVE) mg/dL Urine Ketones Negative (NEGATIVE) mg/dL Urine Occult Blood Small H (NEGATIVE) Urine Nitrite Positive H (NEGATIVE) Urine Bilirubin Negative (NEGATIVE) Urine Urobilinogen 0.2 (0.2) EU/dL Ur Leukocyte Esterase Negative (NEGATIVE) Urine RBC 0-5 (NOT SEEN) /HPF Urine WBC 5-10 H (NOT SEEN) /HPF Ur Squamous Epith Cells Rare (NEGATIVE) /HPF Urine Bacteria Many H (NEGATIVE) /HPF Meds: Medications Discontinued Medications Generic Name Dose Route Start Last Admin Trade Name Freq PRN Reason Stop Dose Admin Cephalexin 2 packet 04/04/20 18:06 04/04/20 18:36 Take Home: Cephalexin 500 Mg, 4 Cap Pack PO 04/04/20 18:07 2 packet ONETIME ONE Administration Cephalexin 500 mg 04/04/20 18:06 04/04/20 18:36 Keflex PO 04/04/20 18:07 500 mg ONETIME ONE Administration Iopamidol 100 ml 04/04/20 17:52 04/04/20 17:55 Isovue-300 (61%) IVPUSH 04/04/20 17:53 100 ml ONETIME ONE Administration Lidocaine HCl 11 ml 04/04/20 15:30 04/04/20 15:43 Glydo MUCMEM 04/04/20 15:31 11 ml ONETIME ONE Administration Sodium Chloride 10 ml 04/04/20 15:29 Saline Flush FLUSH ASDIRECTED PRN Keep Vein Open - Radiology Interpretation Free Text/Narrative:: CT abdomen pelvis per radiology shows hepatic cirrhosis and portal hypertension. Including ascites throughout the abdomen and pelvis as well as anasarca throughout the soft tissues. These findings have progressed since his CT in 2018. Urinary bladder is partially decompressed by Larson catheter extends through the markedly enlarged prostate gland. Varices extend into the pelvis. - Re-Assessments/Exams Free Text/Narrative Re-Assessment/Exam: A bladder scan was completed and showed he had about 500 mils of urine in his bladder. A Larson catheter was placed with good urinary return. The large amount of fluid and anasarca to his abdomen CT abdomen pelvis was completed which shows hepatic cirrhosis portal hypertension and large amount of ascites and anasarca. Fairly markedly enlarged prostate gland which could be the difficulty for his urination as well. Laboratory evaluation with a white blood cell count of 6.1, hemoglobin 9.5. Platelets 251. BUN of 20 glucose 141 liver enzymes are normal with a T bili of 0.9 AST 22 and ALT 21. His albumin is 2.8. His urinalysis is positive for nitrites. You WBCs 510 with many bacteria. We will start the patient on antibiotics for his urinary tract infection. We will keep his Larson catheter in place which is helping with his urinary retention which could be related to not only he is markedly enlarged prostate gland but as well the amount of ascites and anasarca that he has that could be making it difficult for him to urinate as well as the edema and anasarca that he has to his penis. Spent a rather extended period of time discussing with this patient after reviewing his chart noting that he has a history of portal hypertension and ascites and hepatic cirrhosis that once he starts to get this amount of fluid in his abdomen he needs a paracentesis. He has not had 1 for about 6 months and forgot that he had hepatic cirrhosis. Have him contact his primary care provider Monday to get set up for a paracentesis. Also consideration for further evaluation of his prostate due to his inability to urinate. He does not have any pain pressure in that region concerning for acute prostatitis. We will discharge him home at this time. He is comfortable with this plan and his urinary catheter was in place. Departure - Departure Time of Disposition: 18:08 Disposition: Home, Self-Care 01 Clinical Impression: Anasarca, Inability to urinate UTI (urinary tract infection) Qualifiers: Urinary tract infection type: site unspecified Hematuria presence: without hematuria Qualified Code(s): N39.0 - Urinary tract infection, site not specified Hepatic cirrhosis Qualifiers: Hepatic cirrhosis type: unspecified hepatic cirrhosis Ascites presence: with ascites Qualified Code(s): K74.60 - Unspecified cirrhosis of liver; R18.8 - Other ascites - Discharge Information Prescriptions: cephALEXin [Cephalexin] 500 mg PO QID #20 capsule Instructions: Indwelling Urinary Catheter Care, Adult, Antibiotic Medicine, Adult, [id number], Urinary Tract Infection, Adult, [id number], Ascites, Acute Urinary Retention, Male, [id number] Referrals: Gabe Maciel PA-C [Primary Care Provider] - Forms: ED Department Discharge Additional Instructions: Contact your PCP on monday and get set up to have a paracentesis of your abdomen as soon as possible to help with all the swelling. We will leave the catheter in place until the procedure so that you are able to urinate until that time. Cephalexin 1 capsule 4 times a day for the next 5 days for the current UTI. First doses given to you and RX sent to [facility]. Return to the ED if new or worsening symptoms. Follow the discharge instructions for home care of a indwelling catheter that were supplied. Call your PCP or GI doctor right away monday morning to get the procedure set up. Sepsis Event Note (ED) - Evaluation Sepsis Screening Result: No Definite Risk
== END 2020-04-04 18:41 | disposition home or self-care (01) ==
LOC: VM.ED 15:01
DX: N39.0 Urinary tract infection, site not specified (principal); K74.60 Unspecified cirrhosis of liver; R18.8 Other ascites; E78.00 Pure hypercholesterolemia, unspecified; I10 Essential (primary) hypertension; J44.9 Chronic obstructive pulmonary disease, unspecified; I48.91 Unspecified atrial fibrillation; Z88.8 Allergy status to other drugs, medicaments and biological substances; Z79.01 Long term (current) use of anticoagulants; Z79.899 Other long term (current) drug therapy
CPT/HCPCS: 51702; 74177; 80053; 81001; 83605; 85025; 86140; 87086; 87088; 87186; 99284; A9270; Q9967

== ENCOUNTER 2020-04-11 12:45 | Emergency (ER) | payer MEDICARE, OTHER ==
[2020-04-11 12:52] VITALS: BP 150/69; PULSE 89
[2020-04-11] MEDS ORDERED: Lidocaine 2% HCl 11 ML Jelly Filled Syringe TOP ONE (13:20)
--- NOTE | 2020-04-11 13:24 | EDM.PDOC ---
ED HPI GENERAL MEDICAL PROBLEM - General Chief Complaint: Genitourinary Problem Stated Complaint: Pain Time Seen by Provider: 04/11/20 13:05 Source of Information: Reports: Patient - History of Present Illness INITIAL COMMENTS - FREE TEXT/NARRATIVE: Adalberto is an 84 y/o male who comes to the ER with complaints of urine leaking around his catheter. He had a lo placed here in the ER on 04/04/2020 for s evere penile swelling related to his anasarca. He then reports that he was seen on Monday for a paracentesis, but they advised he leave the lo in at time due to the excessive swelling. He has not seen anyone for a recheck since 04/07/2020 when he had the paracentesis at [facility]. He had 3.2 liters of fluid removed at that time. Then last night he started to have the leaking of urine around the lo and also noticed less urine in the drainage bag. - Related Data Allergies Allergy/AdvReac Type Severity Reaction Status Date / Time atorvastatin calcium Allergy Other Verified 04/11/20 12:55 [From Lipitor] Home Meds: Home Meds Simvastatin 20 mg PO BEDTIME 02/24/15 [History] amLODIPine [Norvasc] 5 mg PO DAILY tablet 01/07/19 [Rx] Acetaminophen [Tylenol] 650 mg PO Q4H PRN 02/15/20 [History] Formoterol [Perforomist] 1 ampule INH BID 02/15/20 [History] Ipratropium [Atrovent] 1 ampule INH TID 02/15/20 [History] Metoprolol Tartrate 25 mg PO BID 02/22/20 [History] Furosemide [Lasix] 20 mg PO DAILY tablet 02/24/20 [Rx] Tamsulosin [Flomax] 0.4 mg PO BEDTIME #30 cap.er 02/24/20 [Rx] Warfarin [Coumadin] 5 mg PO DAILY tablet 02/24/20 [Rx] Gabapentin [Neurontin] 300 mg PO TID 04/04/20 [History] cephALEXin [Cephalexin] 500 mg PO QID #20 capsule 04/04/20 [Rx] Past Medical History HEENT History: Reports: Cataract Other HEENT History: hypermetropia. astigmatism. presbyopia. myopia Cardiovascular History: Reports: Arrhythmia, High Cholesterol, Hypertension Other Cardiovascular History: sick sinus syndrome, peripheral vascular disease, A fib Respiratory History: Reports: COPD, SOB Other Respiratory History: chronic respiratory failure, carcinoma of lung. SOB with strenous activity Gastrointestinal History: Reports: Colon Polyp Other Gastrointestinal History: elevated PSA Genitourinary History: Reports: Other (See Below) Other Genitourinary History: elevated PSA Musculoskeletal History: Reports: Back Pain, Chronic Neurological History: Reports: TIA Endocrine/Metabolic History: Reports: Hypothyroidism Oncologic (Cancer) History: Reports: Lung Other Oncologic History: larynx cancer - Past Surgical History HEENT Surgical History: Reports: Cataract Surgery Other HEENT Surgeries/Procedures: laryngectomy Cardiovascular Surgical History: Reports: Pacer Respiratory Surgical History: Reports: Lung Biopsies, Other (See Below) Other Respiratory Surgeries/Procedures: laryngectomy GI Surgical History: Reports: Appendectomy, Hernia, Inguinal Other GI Surgeries/Procedures: adenomatous colon polyp Social & Family History - Family History Oncologic: Reports: Brain, Colon, Prostate Other Oncologic Family History: colon- brother. brain- brother - Tobacco Use Tobacco Use Status *Q: Unknown Ever Used Tobacco - Caffeine Use Caffeine Use: Reports: None - Living Situation & Occupation Living situation: Reports: (They have 5 children in the marriage. 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 of Systems - Review of Systems Review Of Systems: See Below Constitutional: Reports: No Symptoms Eyes: Reports: No Symptoms Ears: Reports: No Symptoms Nose: Reports: No Symptoms Mouth/Throat: Reports: No Symptoms Respiratory: Reports: No Symptoms Cardiovascular: Reports: No Symptoms GI/Abdominal: Reports: Other Genitourinary: Reports: Other (Urine leaking around lo) Musculoskeletal: Reports: No Symptoms Skin: Reports: No Symptoms Neurological: Reports: No Symptoms Psychiatric: Reports: No Symptoms ED EXAM, GENERAL - Physical Exam Exam: See Below Exam Limited By: No Limitations General Appearance: Alert, WD/WN, No Apparent Distress (Elderly male. Speaks while covering permanant trach.) Ears: Hearing Grossly Normal Nose: Normal Inspection, Normal Mucosa Throat/Mouth: Normal Inspection, Normal Lips Head: Atraumatic, Normocephalic Neck: Normal Inspection Respiratory/Chest: No Respiratory Distress, Lungs Clear Cardiovascular: Regular Rate, Rhythm GI/Abdominal: Normal Bowel Sounds, Non-Tender, Distended (firm over lower abdomen region) (Male) Exam: Scrotal Swelling (Foreskin also very swollen and unable to be retracted, lo in place) Rectal (Males) Exam: Deferred Extremities: Non-Tender, Pedal Edema Neurological: Alert, Oriented, CN II-XII Intact, Normal Cognition Psychiatric: Normal Affect, Normal Mood Skin Exam: Warm, Dry, Intact, Normal Color Course - Vital Signs Text/Narrative:: 1305 The patient was seen by the TELEPHONE RECORDER. RN used bladder scan and noted 612ml in bladder with the lo in place. Attempted to flush the catheter, but no increased drainage noted. Lo replaced using UroJet Lidocaine. ER note from 04/04/2020 reviewed and noted the portal hypertension. Labs ordered. Reviewed ER note from 04/04/2020, CT noted very large prostate along with the portal HTN in the liver. 1430 Patient feeling better now and lo drained about 600ml of dark carlton urine. Labs reviewed. BUN=22, Refining Still Operator=1.5, T Bili=9.14, slightly decreased, Alnum in=2.7. Labs discussed with the patient. Will have him follow up with Gabe Maciel PA-C on Monday or Monday to discuss further management of anasarca. Questions answered. Will send him home with lo. Also have him complete the course of Keflex that he has been on. He was given discharge instructions and left the ER in stable condition. Last Recorded V/S: Last Vital Signs Temp 36.4 C 04/11/20 12:48 Pulse 89 04/11/20 12:48 Resp 20 04/11/20 12:48 BP 150/69 H 04/11/20 12:48 Pulse Ox 96 04/11/20 12:48 - Orders/Labs/Meds Orders: Active Orders 24 hr Category Date Time Status Insert Lo Catheter [Insert Urinary Catheter] [OM.PC] Care 04/11/20 13:30 Ordered Q24H Urinary Catheter Assessment [RC] ASDIRECTED Care 04/11/20 13:30 Active Sodium Chloride 0.9% [Saline Flush] Med 04/11/20 13:29 Active 10 ml FLUSH ASDIRECTED PRN Saline Lock Insert [OM.PC] Stat Oth 04/11/20 13:29 Ordered Medication Orders Sodium Chloride (Saline Flush) 10 ml FLUSH ASDIRECTED PRN PRN Reason: Keep Vein Open Labs: Laboratory Tests 04/11/20 04/11/20 04/11/20 Range/Units 13:58 13:58 13:58 WBC 6.9 (4.0-10.0) x10^3/uL RBC 3.56 L (4.5-6.0) x10^6/uL Hgb 9.9 L (14.0-18.0) g/dL Hct 31.6 L (40.0-52.0) % MCV 88.8 (78.0-93.0) fL MCH 27.8 (26.0-32.0) pg MCHC 31.3 L (32.0-36.0) g/dL RDW Coeff of Leelee 15.1 H (10.0-15.0) % Plt Count 254 (130-400) x10^3/uL Neut % (Auto) 60.6 (50.0-80.0) % Lymph % (Auto) 17.3 L (25.0-50.0) % [place] % (Auto) 12.9 H (2.0-11.0) % Eos % (Auto) 8.9 H (0.0-4.0) % Baso % (Auto) 0.3 (0.2-1.2) % PT 29.4 H D (9.5-12.3) SEC INR 2.8 (2.0-3.5) APTT 38.1 H (25.6-32.8) SEC Sodium 139 (136-145) mmol/L Potassium 4.7 (3.5-5.1) mmol/L Chloride 105 (98-107) mmol/L Carbon Dioxide 28 (21-32) mmol/L Anion Gap 10.7 (10-20) mmol/L BUN 22 H (7-18) mg/dL Creatinine 1.5 H (0.70-1.30) mg/dL Est Cr Clr Drug Dosing TNP Estimated GFR (MDRD) 44 Glucose 106 (74-106) mg/dL Calcium 8.1 L (8.5-10.1) mg/dL Corrected Calcium 9.14 (8.5-10.1) mg/dL Total Bilirubin 0.5 (0.2-1.0) mg/dL AST 25 (15-37) U/L ALT 21 (16-63) U/L Alkaline Phosphatase 118 H (46-116) U/L Total Protein 6.2 L (6.4-8.2) g/dL Albumin 2.7 L (3.4-5.0) g/dL Globulin 3.5 Albumin/Globulin Ratio 0.77 Lipase 154 (73-393) U/L Meds: Medications Generic Name Dose Route Start Last Admin Trade Name Freq PRN Reason Stop Dose Admin Sodium Chloride 10 ml 04/11/20 13:29 Saline Flush FLUSH ASDIRECTED PRN Keep Vein Open Discontinued Medications Generic Name Dose Route Start Last Admin Trade Name Freq PRN Reason Stop Dose Admin Lidocaine HCl 11 ml 04/11/20 13:20 04/11/20 13:44 Glydo TOP 04/11/20 13:21 11 ml ONETIME ONE Administration Departure - Departure Time of Disposition: 14:43 Disposition: Home, Self-Care 01 Condition: Good Clinical Impression: Urinary retention, Enlarged prostate with urinary obstruction, UTI, Urinary tract infectious disease, Anasarca UTI (urinary tract infection) Qualifiers: Urinary tract infection type: site unspecified Hematuria presence: without hematuria Qualified Code(s): N39.0 - Urinary tract infection, site not specified - Discharge Information Instructions: Indwelling Urinary Catheter Care, Adult, Acute Urinary Retention, Male, [id number] Referrals: Gabe Maciel PA-C [Primary Care Provider] - Forms: ED Department Discharge Sepsis Event Note (ED) - Evaluation Sepsis Screening Result: No Definite Risk - Focused Exam Vital Signs: Vital Signs Temp Pulse Resp BP Pulse Ox 04/11/20 12:48 36.4 C 89 20 150/69 H 96 - My Orders Last 24 Hours: My Active Orders 04/11/20 13:29 Sodium Chloride 0.9% [Saline Flush] 10 ml FLUSH ASDIRECTED PRN Saline Lock Insert [OM.PC] Stat 04/11/20 13:30 Insert Lo Catheter [Insert Urinary Catheter] [OM.PC] Q24H Urinary Catheter Assessment [RC] ASDIRECTED - Assessment/Plan Last 24 Hours: My Active Orders 04/11/20 13:29 Sodium Chloride 0.9% [Saline Flush] 10 ml FLUSH ASDIRECTED PRN Saline Lock Insert [OM.PC] Stat 04/11/20 13:30 Insert Lo Catheter [Insert Urinary Catheter] [OM.PC] Q24H Urinary Catheter Assessment [RC] ASDIRECTED Assessment:: 1)Urinary Retention 2)UTI, resolving 3)Anasarca 4)Enlarged Prostate Plan: -Finish the course of Keflex that you were started on here in the ER. -Continue the lo until you see Gabe Maciel PA-C in clinic to discuss further option. You may need to be referred to a Urologist. -Return to the ER for any further concerns -Make an appt to your PCP on Monday or Monday of possible
[2020-04-11] MEDS ORDERED: Sodium Chloride 0.9% 10 ML Syringe FLUSH PRN (13:29)
[2020-04-11 14:25] LABS: PTT,PARTIAL THROMBOPLSTIN TIME 38.1 SEC (25.6-32.8)
[2020-04-11 14:28] LABS: ANION GAP 10.7 mmol/L (10-20); CHLORIDE,CL 105 mmol/L (98-107); SODIUM,NA 139 mmol/L (136-145)
== END 2020-04-11 15:01 | disposition home or self-care (01) ==
LOC: VM.ED 12:45
DX: N40.1 Benign prostatic hyperplasia with lower urinary tract symptoms (principal); N13.8 Other obstructive and reflux uropathy; R33.8 Other retention of urine; N39.0 Urinary tract infection, site not specified; I10 Essential (primary) hypertension; E78.00 Pure hypercholesterolemia, unspecified; I48.91 Unspecified atrial fibrillation; J44.9 Chronic obstructive pulmonary disease, unspecified; Z90.49 Acquired absence of other specified parts of digestive tract; Z79.01 Long term (current) use of anticoagulants; Z88.8 Allergy status to other drugs, medicaments and biological substances; Z79.899 Other long term (current) drug therapy
CPT/HCPCS: 36415; 51702; 80053; 83690; 85025; 85610; 85730; 99283; 99284; A9270